=== PATIENT | male | born 1950 | race Caucasian/White ===

== ENCOUNTER → 2017-10-28 15:59 | Outpatient (CLI) | payer MEDICARE, OTHER, SELFPAY ==
[2017-10-28 18:10] LABS: Anion Gap 9 (5-15); BUN 29 mg/dL (7-18); BUN/Creat Ratio 17.4 RATIO (10-20); Calcium,Total 9.3 mg/dL (8.5-10.1); Chloride 102 mmol/L (98-107); Creatinine, Serum 1.67 mg/dL (0.70-1.30); EST Glomerular Filtration Rate 44 mL/min (>60); Est Glom Filt Rate - Afr Amer 53 mL/min (>60); Glucose 98 mg/dL (70-110); Potassium 4.2 mmol/L (3.5-5.1); Sodium Level 139 mmol/L (136-145); T4 Free Direct 1.61 ng/dL (0.76-1.46); Thyroid Stim Hormone (TSH) 1.64 uIU/mL (0.358-3.74)
== END ==
PROVIDERS: Family Provider Family Medicine; PCP Family Medicine; Visit Provider Family Medicine
DX: E03.9 Hypothyroidism, unspecified (principal)
CPT/HCPCS: 80048; 84439; 84443

== ENCOUNTER → 2017-11-25 13:42 | Outpatient (CLI) | payer MEDICARE, OTHER, SELFPAY ==
[2017-10-31 15:40] VITALS: BP 110/60; BMI 32.7
--- NOTE | 2017-11-25 13:44 | ECHOCS_ITS ---
Reason For Study: CAD/ASHD Procedure This was a 2D Doppler, Color Flow transthoracic echocardiogram. The study was technically difficult. Contrast injection was performed. Exam performed in department. Left Ventricle Severely dilated left ventricle. The estimated ejection fraction is 25 %. Transmitral diastolic flow velocities suggest severe (stage 3) diastolic dysfunction. There is severe global hypokinesis of the left ventricle. Right Ventricle Normal RV size. ICD or pacer leads identified within the right ventricle. Normal systolic function. Atria The left atrium is mildly enlarged. Normal right atrium. Mitral Valve Normal mitral valve. Mild-Moderate (1-2+) eccentric mitral valve insufficiency. Tricuspid Valve Normal tricuspid valve. Mild to moderate (1-2+) tricuspid valve insufficiency. Pulmonary artery systolic pressure is 42 mmHg. Aortic Valve Normal aortic valve. Mild (1+) aortic valve insufficiency. Pulmonic Valve Normal pulmonic valve. Great Vessels Normal aortic root. The pulmonary is not well visualized. Normal inferior vena cava. Pericardium/Pleural No pericardial effusion. Medication 22 gauge I.V. with prn adaptor inserted into right arm. Diluted definity 3.0ml given slow IV push to enhance endocardial definition. MMode/2D Measurements & Calculations LVIDd: 7.0 cm IVSd: 1.2 cm Ao root diam: 3.0 cm LVIDs: 6.0 cm LVPWd: 1.1 cm LA dimension: 4.9 cm FS: 14.7 % LAV(MOD-bp): 83.4 ml LAV(MOD-bp) Indexed: 37.8 ml/m2 LA A4 area: 27.0 cm2 RA A4 area: 22.5 cm2 LAV(MOD-sp2): 82.1 ml LAV(MOD-sp4): 87.1 ml Doppler Measurements & Calculations MV E max bc: 94.4 cm/sec Lat Peak E' Bc: 5.8 cm/sec Med Peak E' Bc: 4.3 cm/sec MV A max bc: 77.2 cm/sec E/E' lat: 16.4 E/E' med: 21.7 MV E/A: 1.2 Ao V2 max: 135.4 cm/sec LV V1 max: 85.6 cm/sec MR max bc: 484.0 cm/sec Ao max P.3 mmHg LV V1 max P.9 mmHg MR max P.7 mmHg PA V2 max: 73.3 cm/sec TR max bc: 307.0 cm/sec TR max P.7 mmHg Interpretation Summary Severely dilated left ventricle. The estimated ejection fraction is 25 %. Transmitral diastolic flow velocities suggest severe (stage 3) diastolic dysfunction Mild to moderate (1-2+) tricuspid valve insufficiency. Pulmonary artery systolic pressure is 42 mmHg. Compared to prior study, there is no significant change. Ordering Physician: Jatin Maldonado Referring Physician: Jatin Maldonado Performed By: Yuridia Gilliland, ABDOUL, RVT
== END ==
PROVIDERS: Family Provider Family Medicine; PCP Family Medicine; Visit Provider Internal Medicine Cardiovascular Disease
DX: I25.10 Atherosclerotic heart disease of native coronary artery without angina pectoris (principal)
CPT/HCPCS: 93306; Q9957; A4216; C8929

== ENCOUNTER 2017-12-30 01:39 | Emergency (ER) | payer MEDICARE, OTHER, SELFPAY ==
[2017-12-30 01:40] VITALS: BP 152/80; PULSE 60; RESP 16; TEMP 36.7; O2SAT 94; BMI 33.2
--- NOTE | 2017-12-30 02:04 | EKG12_ITS ---
Test Reason : GEN ILLNESS Blood Pressure : / mmHG Vent. Rate : 060 BPM Atrial Rate : 060 BPM P-R Int : 218 ms QRS Dur : 164 ms QT Int : 516 ms P-R-T Axes : 019 -36 -09 degrees QTc Int : 516 ms Atrial-paced rhythm with prolonged AV conduction Left axis deviation Left bundle branch block Abnormal ECG Confirmed by DEBRA TIWRAI, TAHIR ([id number]), science editor CELINE MCCORD ([id number]) on 12/31/2017 1:26:19 PM Referred By: PETER Confirmed By:TAHIR RICHARDSON MD
--- NOTE | 2017-12-30 02:04 | RAD_ITS ---
STUDY: X-RAY CHEST REASON FOR EXAM: Male, 67 years old. Problems sleeping for the last 2 nights. TECHNIQUE: Frontal and lateral views of the chest. COMPARISON: 01/02/2016. FINDINGS: There is hyperinflation of the lungs consistent with chronic obstructive lung disease (COPD). There is no demonstrated pulmonary infiltrate. There is no demonstrated pleural abnormality. Normal size heart. There is an atrioventricular pacemaker. Normal mediastinum and [place]. Normal visualized pulmonary arteries. Normal visualized aortic arch and descending x-ray thoracic aorta. Normal visualized thoracic spine. Normal visualized ribs, clavicles, and shoulders. There is no demonstrated abnormality of the visualized soft tissue structures of the upper abdomen. RAD/Chest PA and Lateral IMPRESSION: Suggestion of COPD. Pacemaker. No evidence for acute cardiopulmonary pathology. Electronically Signed: Enrrique Sndier MD at 3:48 EDT , Service support ,
--- NOTE | 2017-12-30 02:31 | ED.VISSUMM ---
- ER Visit Summary Date of Service: 12/30/17 Chief Complaint: [] Requesting cardiac assessment, shortness of breath History of Present Illness: The patient is a 67 M [] requesting a cardiac assessment for mild shortness of breath and being unable to get comfortable during the evening. Patient reports anxiety for a cardiac events as he has a cardiac stents and a pacemaker. He denies chest pain at any point. Reports very mild shortness of breath. Appears slightly anxious during the history and physical examination. No other complaints at this time. Physical Examination: [] Afebrile, vital signs stable. She 7-year-old male in no acute distress. Cardiovascular exam is regular rate and rhythm. Lungs are clear to auscultation. Abdomen is obese, soft, nontender. No significant lower extremity edema. Test Results: [] EKG: Atrial paced rhythm rate of 60 unchanged from previous EKG. Chest x-ray: Negative per my interpretation. Labs: CBC, BMP, troponin, BNP within normal limits. Emergency Department Course and Treatment: [] Patient had a very benign presentation and physical examination. He appears slightly anxious and again denies chest pain anytime prior or during his ED visit. 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 Treatment Plan: [] Follow-up with cardiology. Disposition: [] Discharge, stable. Impression: [] Anxiety Dyspnea History of CAD This note was generated with [employer] dictation software. It may contain incorrect words, spelling, and punctuation that were not noted in review of the chart prior to signing ED Disposition - Plan for ED Patient: Chief Complaint: General Illness Referrals: Edgardo Garcia MD [Primary Care Provider] -
[2017-12-30 02:35] LABS: Absolute Lymphocyte Count 1.21 X10^3/ul (0.83-4.51); Basophil# 0.08 X10^3/uL; Basophil% 0.7 % (0-1); Eosinophil# 0.25 X10^3/uL; Eosinophils% 2.2 % (0-5); Hematocrit 46.7 % (40-54); Hemoglobin 15.8 g/dl (13.0-16.5); Lymphocyte # 1.21 X10^3/ul (4.0); Lymphocyte % 10.7 % (19-41); Mean Corp Hgb Conc 33.8 g/gl (32-36); Mean Corpuscular Hgb 30.7 pg (27.0-32.0); Mean Corpuscular Volume 90.7 fL (80-94); Mean Platelet Vol. 9.9 fl (6.2-12.0); Monocyte# 0.72 X10^3/uL; Monocyte% 6.4 % (0-10); Neutrophil # 9.02 X10^3/uL (2.7-7.7); Neutrophil % 79.7 % (47-70); Platelet Count 254 K/mm3 (150-450); RBC Distribution Width CV 13.6 % (11.6-14.6); Red Blood Count 5.15 M/mm3 (4.6-6.2); White Blood Count 11.3 K/mm3 (4.4-11.0)
[2017-12-30 02:36] LABS: POSITIVE COUNT NO; POSITIVE DIFFERENTIAL NO; POSITIVE MORPHOLOGY NO
[2017-12-30 02:51] LABS: Anion Gap 8 (5-15); BUN 22 mg/dL (7-18); BUN/Creat Ratio 16.7 RATIO (10-20); Calcium,Total 8.9 mg/dL (8.5-10.1); Chloride 106 mmol/L (98-107); Creatinine, Serum 1.32 mg/dL (0.70-1.30); EST Glomerular Filtration Rate 57 mL/min (>60); Est Glom Filt Rate - Afr Amer 70 mL/min (>60); Estimated Creatinine Clearance 56.07 ml/min; Glucose 146 mg/dL (74-106); Potassium 4.3 mmol/L (3.5-5.1); Sodium Level 141 mmol/L (136-145)
[2017-12-30 03:11] LABS: BNP,B-Type NATRIURETIC PEPTIDE 294.2 pg/mL (0-100)
--- NOTE | 2017-12-30 03:16 | ED.DEP ---
ED Disposition - Plan for ED Patient: Disposition: Home or Assisted Living Chief Complaint: General Illness Instructions: ED Dyspnea Shortness of Breath Referrals: Edgardo Garcia MD [Primary Care Provider] -
[2017-12-30 03:47] VITALS: BP 149/82; PULSE 60; RESP 20; O2SAT 95
== END 2017-12-30 03:48 | disposition home or self-care (01) ==
PROVIDERS: Emergency Provider Emergency Medicine; Family Provider Family Medicine; PCP Family Medicine
DX: F41.9 Anxiety disorder, unspecified (principal); R06.00 Dyspnea, unspecified; I25.10 Atherosclerotic heart disease of native coronary artery without angina pectoris; E66.9 Obesity, unspecified; Z95.0 Presence of cardiac pacemaker; Z95.5 Presence of coronary angioplasty implant and graft
CPT/HCPCS: 71046; 80048; 83880; 84484; 85025; 93005; 99284; A4216

== ENCOUNTER → 2018-04-21 15:56 | Outpatient (CLI) | payer MEDICARE, OTHER, SELFPAY ==
[2018-04-21 18:01] LABS: ALB/GLOB Ratio 0.9 RATIO (0.9-2.4); AST(SGOT) 34 U/L (15-37); Alanine Aminotransfer ALT/SGPT 44 U/L (16-61); Albumin, Serum 3.7 g/dL (3.2-5.0); Alkaline Phosphatase 59 U/L (45-117); Anion Gap 6 (5-15); BUN 21 mg/dL (7-18); Calcium,Total 8.7 mg/dL (8.5-10.1); Chloride 108 mmol/L (98-107); Creatinine, Serum 1.61 mg/dL (0.70-1.30); EST Glomerular Filtration Rate 46 mL/min (>60); Est Glom Filt Rate - Afr Amer 55 mL/min (>60); Glucose 94 mg/dL (74-106); Potassium 4.1 mmol/L (3.5-5.1); Protein, Total 7.7 g/dL (6.4-8.2); Sodium Level 143 mmol/L (136-145); Thyroid Stim Hormone (TSH) 2.31 uIU/mL (0.358-3.74)
== END ==
PROVIDERS: Family Provider Family Medicine; PCP Family Medicine; Visit Provider Family Medicine
DX: I10 Essential (primary) hypertension (principal); E03.9 Hypothyroidism, unspecified; E78.5 Hyperlipidemia, unspecified
CPT/HCPCS: 36415; 80053; 83880; 84443

== ENCOUNTER → 2018-05-06 06:00 | Outpatient (CLI) | payer MEDICARE, OTHER, SELFPAY ==
[2018-05-06 08:18] LABS: AST(SGOT) 32 U/L (15-37); Alanine Aminotransfer ALT/SGPT 47 U/L (16-61); Albumin, Serum 3.6 g/dL (3.2-5.0); Alkaline Phosphatase 63 U/L (45-117); Bilirubin, Direct 0.14 mg/dL (0.00-0.30); Cholesterol 148 mg/dL (200); Globulin 4.1 g/dL (2.2-4.2); High Density Lipoprotein 64 mg/dL; Protein, Total 7.7 g/dL (6.4-8.2); Triglycerides 75 mg/dL; Very Low Density Lipoprotein 15 mg/dL (5-40)
== END ==
PROVIDERS: Family Provider Family Medicine; PCP Family Medicine; Visit Provider Internal Medicine Cardiovascular Disease
DX: E78.5 Hyperlipidemia, unspecified (principal)
CPT/HCPCS: 36415; 80061; 80076

== ENCOUNTER → 2018-10-29 15:52 | Outpatient (CLI) | payer MEDICARE, OTHER, SELFPAY ==
[2018-08-23 12:59] VITALS: BMI 32.7
[2018-10-29 17:41] LABS: Anion Gap 11 (5-15); BUN 28 mg/dL (7-18); BUN/Creat Ratio 18.9 RATIO (10-20); Calcium,Total 8.9 mg/dL (8.5-10.1); Chloride 112 mmol/L (98-107); Creatinine, Serum 1.48 mg/dL (0.70-1.30); EST Glomerular Filtration Rate 50 mL/min (>60); Est Glom Filt Rate - Afr Amer 61 mL/min (>60); Glucose 116 mg/dL (74-106); Sodium Level 146 mmol/L (136-145)
== END ==
PROVIDERS: Family Provider Family Medicine; PCP Family Medicine; Visit Provider Family Medicine
DX: I10 Essential (primary) hypertension (principal)
CPT/HCPCS: 36415; 80048

== ENCOUNTER → 2018-11-04 15:38 | Outpatient (CLI) | payer MEDICARE, OTHER, SELFPAY ==
[2018-11-04 14:50] VITALS: BMI 32.4
[2018-11-04 17:04] LABS: T4 Free Direct 1.66 ng/dL (0.76-1.46); Thyroid Stim Hormone (TSH) 0.13 uIU/mL (0.358-3.74)
== END ==
PROVIDERS: Family Provider Family Medicine; PCP Family Medicine; Referring Provider Nurse Practitioner Family; Visit Provider Nurse Practitioner Family
DX: E78.5 Hyperlipidemia, unspecified (principal); Z79.899 Other long term (current) drug therapy
CPT/HCPCS: 36415; 84439; 84443

== ENCOUNTER → 2018-11-12 07:07 | Outpatient (CLI) | payer MEDICARE, OTHER, SELFPAY ==
[2018-11-04 14:50] VITALS: BMI 32.4
[2018-11-12 08:46] LABS: AST(SGOT) 30 U/L (15-37); Alanine Aminotransfer ALT/SGPT 46 U/L (16-61); Albumin, Serum 3.6 g/dL (3.2-5.0); Alkaline Phosphatase 73 U/L (45-117); Bilirubin, Direct 0.17 mg/dL (0.00-0.30); Cholesterol 138 mg/dL (200); Globulin 4.2 g/dL (2.2-4.2); High Density Lipoprotein 62 mg/dL; Protein, Total 7.8 g/dL (6.4-8.2); Triglycerides 74 mg/dL; Very Low Density Lipoprotein 15 mg/dL (5-40)
== END ==
PROVIDERS: Family Provider Family Medicine; PCP Family Medicine; Referring Provider Physician Assistant Medical; Visit Provider Physician Assistant Medical
DX: E87.5 Hyperkalemia (principal); I25.10 Atherosclerotic heart disease of native coronary artery without angina pectoris
CPT/HCPCS: 36415; 80061; 80076

== ENCOUNTER → 2019-01-05 | Outpatient (CLI) | payer MEDICARE, OTHER, SELFPAY ==
[2018-11-04 14:50] VITALS: BMI 32.4
[2019-01-05 16:31] LABS: T4 Free Direct 1.28 ng/dL (0.76-1.46); Thyroid Stim Hormone (TSH) 5.01 uIU/mL (0.358-3.74)
== END | disposition home or self-care (01) ==
LOC: MFPLAB 14:41
PROVIDERS: Family Provider Family Medicine; PCP Family Medicine; Visit Provider Family Medicine
DX: E03.9 Hypothyroidism, unspecified (principal)
CPT/HCPCS: 36415; 84439; 84443

== ENCOUNTER 2019-03-25 09:51 | Inpatient (IN) | payer MEDICARE, OTHER, SELFPAY ==
[2018-11-04 14:50] VITALS: BMI 32.4
[2019-03-25] VITALS (11 sets, daily range): BP systolic 104–127; BP diastolic 58–65; PULSE 60–63; RESP 16–61; TEMP 36.6–36.8; O2SAT 88–96; BMI 30.7; BMI 30.3
--- NOTE | 2019-03-25 10:27 | EKG12_ITS ---
Test Reason : LACERATION Blood Pressure : / mmHG Vent. Rate : 060 BPM Atrial Rate : 060 BPM P-R Int : 214 ms QRS Dur : 162 ms QT Int : 612 ms P-R-T Axes : 013 -40 077 degrees QTc Int : 612 ms Atrial-paced rhythm with prolonged AV conduction Left axis deviation Left bundle branch block Abnormal ECG Confirmed by MELISSA TIWARI, VINOD ([id number]), design editor DENISE FOURNIER ([id number]) on 03/27/2019 10:36:10 AM Referred By: Vlad Jarvis Confirmed By:NATALIA TORRES MD
--- NOTE | 2019-03-25 10:31 | CT_ITS ---
HISTORY: Status post fall with headache COMPARISON: None. TECHNIQUE: Helical CT axial images are obtained from the base of skull through the vertex without IV contrast. Multiplanar reconstruction. A radiation dose optimization technique was used for this scan. # of images incl. paperwork: 257 FINDINGS: Moderate sized focal area of decreased attenuation anterior left periventricular white matter/sykes radiata region most likely sequela of prior ischemic insult. No parenchymal hemorrhage, acute infarct, intra-axial mass, mass effect, or midline shift. No abnormal extra-axial fluid collections. Ventricles are normal in size and configuration. No hydrocephalus. Within the left suboccipital subcutaneous soft tissues is a partially seen lobulated soft tissue density mass measuring 2.0 x 2.3 cm in greatest TV/AP dimensions.Bone windows show no skull fracture or calvarial lesions. Visualized paranasal sinuses are clear. Visualized mastoid air cells are clear. ASPECTS Score for Acute Strokes: 10 CT/Brain/Head without Contrast IMPRESSION: 1. No acute intracranial disease. 2. Moderate size focal area of probable old infarct left anterior periventricular white matter/sykes radiata region. Somewhat unusual to have such an isolated appearance, and therefore further evaluation with MRI brain is warranted. 3. Partially seen left suboccipital soft tissue soft tissue density lobulated mass measuring at least 2.0 x 2.3 cm. Individualized dose optimization techniques were used for this CT. at 1210 Reported and signed by: Gal Magdaleno MD Electronically Signed: Gal Magdaleno MD at 12:10 EDT Tel , Service support ,
--- NOTE | 2019-03-25 10:35 | RAD_ITS ---
STUDY: X-RAY CHEST REASON FOR EXAM: Male, 68 years old. TECHNIQUE: 1 view COMPARISON: December 30, 2017. FINDINGS: The heart is moderately enlarged. A permanent pacemaker is noted with 2 leads in position. There is haziness involving both central lung larsen more so on the left side. Heavy markings seen in the medial aspect of the right base. No obvious consolidation or atelectasis. No pleural effusion or pneumothorax noted. The trachea is in the midline. The visualized bony structures are intact. RAD/Chest 1 View (Portable) IMPRESSION: Haziness involving both central lung larsen more on the left Moderate Cardiomegaly. Electronically Signed: Warren Huber, at 11:51 EDT Tel , Service support ,
[2019-03-25 11:01] LABS: Absolute Lymphocyte Count 0.42 X10^3/ul (0.83-4.51); Absolute Neutrophil Count 13.5 X10^3/uL (2.0-7.7); Basophil# 0.04 X10^3/uL; Basophil% 0.3 % (0-1); Hematocrit 38.6 % (40-54); Hemoglobin 12.7 g/dl (13.0-16.5); Lymphocyte # 0.42 X10^3/ul (4.0); Lymphocyte % 2.8 % (19-41); Mean Corp Hgb Conc 32.9 g/gl (32-36); Mean Corpuscular Hgb 29.9 pg (27.0-32.0); Mean Corpuscular Volume 90.8 fL (80-94); Mean Platelet Vol. 9.5 fl (6.2-12.0); Monocyte# 0.93 X10^3/uL; Monocyte% 6.3 % (0-10); Neutrophil # 13.47 X10^3/uL (2.7-7.7); Neutrophil % 90.5 % (47-70); Platelet Count 223 K/mm3 (150-450); RBC Distribution Width CV 14.7 % (11.6-14.6); RBC Distribution Width SD 47.8 fl (35.1-43.9); Red Blood Count 4.25 M/mm3 (4.6-6.2); White Blood Count 14.9 K/mm3 (4.4-11.0)
[2019-03-25 11:04] LABS: Differential Indicated SCAN CRITERIA MET; POSITIVE COUNT NO; POSITIVE DIFFERENTIAL YES; POSITIVE MORPHOLOGY NO
--- NOTE | 2019-03-25 11:09 | ED.DCSUM_ITS ---
History of Present Illness Chief Complaint: Laceration Informant: Patient Occurred: Today Mechanism/Context: Cannot recall fall - But was in bed prior to the fall, awoke on the floor next to the bed, Lightheadedness Location: right lip/mouth Quality of Pain: - - sore Current Severity: Mild Maximum Severity: Mild Worsened by: palpation Relieved by: leaving it alone Associated Symptoms: - - mouth bleeding. Negative for: Parasthesias, Weakness Narrative: Patient states he had some vomiting and diarrhea recently without any abdominal discomfort, was feeling lightheaded this morning, but laid down to take a nap after he was up earlier, does not know if he was asleep and fell out of bed or if something else happened, but he does not recall any of the events and woke up on the floor. No tongue biting or soiling his pants. Denies a headache. states there is a small bedside table that appeared that he had hit it, and may have caused a laceration at the corner of his mouth on the right. He states he is sore there but does not feel like he injured anything else. He is on aspirin and Plavix for a history of coronary stenting. States last night he felt short of breath for period of time and was coughing, nonproductive, denies that now. No known history of lung disease. - Past Medical History (1) Atherosclerotic heart disease of [place] coronary artery without angina pectoris Status: Chronic (2) Cardiomyopathy, ischemic Status: Chronic (3) History of radiofrequency ablation procedure for cardiac arrhythmia Status: Chronic Comment: VT ablation 03/04/[address] Livingston @ [place] (4) Hyperlipidemia Status: Chronic (5) Hypertension Status: Chronic (6) ICD (implantable cardioverter-defibrillator) in place Status: Chronic Comment: initial implant 09/02/2006 @ [facility] per Dr. Florez ; gen change 06/05/2012 @ [facility] per Dr. Ely (7) Nonrheumatic mitral (valve) insufficiency Status: Chronic (8) PAF (paroxysmal atrial fibrillation) Status: Chronic (9) Ventricular tachycardia Status: Resolved Past Medical History - Allergies and Home Meds Allergies/Adverse Reactions: Allergies Penicillins Allergy (Verified 11/04/18 14:58) Unknown was told had a reaction as a child Surgical History: angioplasty, - - AICD placement in 2011, ablation procedure for ventricular tachycardia February 2014. Lives: Spouse/ Significant Other Smoking Status: Never smoker Drugs: None - Family History Maternal Family History: Family History (Last Reviewed 03/25/19 @ 13:43 by Vlad Jarvis DO) Mother Sudden cardiac Father No problems noted. Family History: Reports: - - from sudden cardiac arrest. Paternal Family History: Family History (Last Reviewed 03/25/19 @ 13:43 by Vlad Jarvis DO) Mother Sudden cardiac Father No problems noted. Family History: Reports: - - sudden Review of Systems All systems negative except as indicated General: Denies: Chills, Fever, Sweats Eyes: Denies: Visual changes - bilaterally, Diplopia ENT: Reports: - - right mouth/lip pain and lac. Denies: Rhinorrhea, Sore throat Cardiovascular: Denies: Chest pain, Palpitations Respiratory: Reports: Dyspnea, Cough. Denies: Dyspnea on exertion Gastrointestinal: Denies: Abdominal pain, Nausea, Vomiting, Diarrhea, Melena, Hematochezia Genitourinary: Denies: Dysuria, Hematuria, Frequency Musculoskeletal: Denies: Neck pain, Back pain, Swelling, Extremity Pain Skin: Reports: Wounds. Denies: Rash Neurological: Denies: Headache, Weakness, Numbness Hematologic: Reports: Easy bruising, Easy bleeding Physical Exam Vital Signs/Narrative: Vital Signs Temp Resp BP Pulse Ox 03/25/19 09:52 98.3 F 60 H 114/61 88 Inital Vital Signs reviewed: Yes General: Well nourished, Well developed Head: Normocephalic, Atraumatic - except for right lip Eyes: Perrl, EOMI ENT: TM's clear, No hemotympanum or drainage, - - Midface stable and nontender. There is a 1 cm laceration of the upper lip on the right, just above the corner of the mouth. He has some crooked teeth that may have caused this, but none of them are loosened or tender, there is no gingival trauma, there is a missing tooth nearby in the maxillary row but there is no tenderness or evidence that this occurred acutely. There is no other evidence of intraoral trauma. The laceration has intermittent arteriolar bleeding that is able to be controlled after holding pressure for about 60 seconds and keeping the patient from moving his lips. There is another laceration below his lower lip not including the vermilion that is separate, and not through and through.. Negative for: Nasal trauma, Nasal septal hematoma Neck: Nontender, Full ROM. Negative for: Spinal Tenderness Cardiovascular: Regular rate, Regular rhythm, No murmurs Respiratory: No distress, CTA bilaterally, Chest nontender Abdomen: Soft, Nontender, Nondistended, Normal bowel sounds Back: Nontender. Negative for: Spinal Tenderness Skin: Normal color, No rash, Trauma - Right lip laceration as above, 1 cm, full- thickness within the vermilion and mucosa, not crossing the border vermilion. 1 cm full thickness clean irregular facial laceration just below lower lip on right. Neurological: Alert, Oriented x3, Cranial nerves II-XII grossly intact, Normal Strength, Normal Sensation, - - GCS 15 Psychological: Normal affect Diagnostic/Tx/Re-eval Impressions Brain CT 03/25/19 10:31 IMPRESSION: 1. No acute intracranial disease. 2. Moderate size focal area of probable old infarct left anterior periventricular white matter/sykes radiata region. Somewhat unusual to have such an isolated appearance, and therefore further evaluation with MRI brain is warranted. 3. Partially seen left suboccipital soft tissue soft tissue density lobulated mass measuring at least 2.0 x 2.3 cm. Individualized dose optimization techniques were used for this CT. at 1210 Reported and signed by: Gal Magdaleno MD Electronically Signed: Gal Magdaleno MD at 12:10 EDT Tel , Service support , Chest X-Ray 03/25/19 10:35 IMPRESSION: Haziness involving both central lung larsen more on the left Moderate Cardiomegaly. Electronically Signed: Warren Huber, at 11:51 EDT Tel , Service support , 03/25/19 10:31 Brain/Head without Contrast [CT] Stat 03/25/19 10:35 Chest 1 View (Portable) [RAD] Stat Laboratory Results 03/25/19 03/25/19 10:47 10:47 WBC 14.9 H RBC 4.25 L Hgb 12.7 L Hct 38.6 L MCV 90.8 MCH 29.9 MCHC 32.9 RDW 14.7 H RDW Differential 47.8 H Plt Count 223 MPV 9.5 Immature Gran % (Auto) 0.100 Neut % (Auto) 90.5 H Lymph % (Auto) 2.8 L [place] % (Auto) 6.3 Eos % (Auto) 0.0 Baso % (Auto) 0.3 Absolute Neuts (auto) 13.5 H Absolute Lymphs (auto) 0.42 L Total Counted Not Reportable Differential Comment COMMENT Sodium 141 Potassium 4.5 Chloride 110 H Carbon Dioxide 25.0 Anion Gap 6 BUN 34 H Creatinine 1.54 H Estim Creat Clear Calc 47.40 Est GFR (MDRD) Af Amer 58 L Est GFR (MDRD) Non-Af 48 L BUN/Creatinine Ratio 22.1 H Glucose 172 H Calcium 8.3 L Troponin I 0.069 H - Rhythm Strip Rhythm Strip: atrial pace/capture Rate: 60 Ectopy: None - EKG Initial EKG Interpretation: No Acute Injury Pattern, Paced - atrial, LBBB Prior: Unchanged - Medical Decision Making CT shows a soft tissue mass in the occipital area but also a moderately sized area of infarct as noted above in the CT result. In discussing this with the patient he is surprised and states he has never had a stroke before that he knows of. He does have a history of paroxysmal atrial fibrillation in his history, and he is on aspirin and Plavix without anticoagulation. He has no history of life-threatening bleeding that he knows of. I discussed with neurology Dr. Buitrago who advises anticoagulating him in addition to admitting him, MRI, etc. Also EEG. MRI may not be able to be obtained because of his pacemaker/defibrillator. Other than chronic renal insufficiency and a nonspecifically elevated troponin which he has had in the past, the rest of his work-up is unremarkable. Discussed with hospitalist for admission to telemetry/PCU. Of note, NIHSS is 0. Given this and lack of neurologic deficits, no IV TPA is indicated. Procedures - Lacerations upper right lip Length: 1 cm Depth: Sub Q Shape: L-shaped Prep: Sterile Conditions, Chlorhexadine Laceration Repair: Lidocaine - 4.5 cc locally total. Irrigated with saline. Number of Sutures/[place]: 7 - Total Suture Information: Simple, 5-0 - Vicryl x4 on lip mucosa/vermilion, 6-0 - Nylon x3 at facial skin laceration ED Disposition - Plan for ED Patient: Disposition: Acute Care Hospital [facility] Diagnosis: Syncope, Ischemic stroke without residual deficits, Paroxysmal atrial fibrillation, Lip laceration, Facial laceration
[2019-03-25 11:10] LABS: Anion Gap 6 (5-15); BUN 34 mg/dL (7-18); BUN/Creat Ratio 22.1 RATIO (10-20); Calcium,Total 8.3 mg/dL (8.5-10.1); Chloride 110 mmol/L (98-107); Creatinine, Serum 1.54 mg/dL (0.70-1.30); EST Glomerular Filtration Rate 48 mL/min (>60); Est Glom Filt Rate - Afr Amer 58 mL/min (>60); Glucose 172 mg/dL (74-106); Potassium 4.5 mmol/L (3.5-5.1); Sodium Level 141 mmol/L (136-145)
[2019-03-25] MEDS: Lidocaine/Epi/Tetracaine 50 ML 1 APPLIC TOPICAL (11:45)
--- NOTE | 2019-03-25 13:04 | NURSING ---
DR SEVILLA FOR DR MANZO
--- NOTE | 2019-03-25 13:39 | PCM.HP.STD ---
Problem List (1) Syncope Status: Acute Qualifiers: Syncope type: unspecified Qualified Code(s): R55 - Syncope and collapse (2) CVA (cerebral vascular accident) Status: Acute Qualifiers: CVA mechanism: unspecified Qualified Code(s): I63.9 - Cerebral infarction, unspecified History of Present Illness Date of Admission: 03/25/19 Chief Complaint: fell down. The patient is a 68 year old M who was in his normal state of health up until the past day where he is having some diarrhea. Was also just not eating or drinking. Got up this morning felt dizzy went to lay back down in the next thing he knew he was awake on the floor had no recollection of how he got there. Patient sustained a laceration of his lip as well as some bruising on his face and on his left knuckles. Patient is never had any event such as this in the past. Presented to the emergency room and had an MRI that showed a moderate size focal area of probable old infarct of the left anterior periventricular white matter/sykes radiata region. Neurology was contacted and advised anticoagulation and an MRI. Unfortunately, patient has a defibrillator [employer] E110 that is not described as being MRI compatible in the company information sheets. Patient is never had a stroke before and denies any unilateral weakness, expressive nor receptive aphasia. [] Past Medical History Past Medical History (Chronic Problems): Chronic Problems (Last Reviewed 03/25/19 @ 13:42 by Vlad Jarvis DO) halfway current use of amiodarone (Chronic) ICD (implantable cardioverter-defibrillator) in place (Chronic) History of acute congestive heart failure (Chronic) halfway current use of anticoagulant (Chronic) History of left heart catheterization (Chronic) @ [facility], 03/02/2014 and 11/01/2015, Dr. Maldonado at [facility] Stented coronary artery (Chronic) 05/16/2006 mid to distal AV cx facilitated by [facility] Aspiration cath using [employer] KEIKO Nonrheumatic mitral (valve) insufficiency (Chronic) Atherosclerotic heart disease of [place] coronary artery without angina pectoris (Chronic) History of radiofrequency ablation procedure for cardiac arrhythmia (Chronic) VT ablation 03/04/[address] Livingston @ [facility] Hyperlipidemia (Chronic) Hypertension (Chronic) ICD (implantable cardioverter-defibrillator) in place (Chronic) initial implant 09/02/2006 @ [facility] per Dr. Florez ; gen change 06/05/2012 @ [facility] per Dr. Ely PAF (paroxysmal atrial fibrillation) (Chronic) Cardiomyopathy, ischemic (Chronic) Medical History: Medical History (Last Reviewed 03/25/19 @ 13:42 by Vlad Jarvis DO) History of acute congestive heart failure (Chronic) Z86.79 halfway current use of anticoagulant (Chronic) Z79.01 Nonrheumatic mitral (valve) insufficiency (Chronic) I34.0 Atherosclerotic heart disease of [place] coronary artery without angina pectoris (Chronic) I25.10 Hyperlipidemia (Chronic) E78.5 Hypertension (Chronic) I10 Ventricular tachycardia (Resolved) I47.2 PAF (paroxysmal atrial fibrillation) (Chronic) I48.0 Cardiomyopathy, ischemic (Chronic) I25.5 Allergies Penicillins Allergy (Verified 11/04/18 14:58) Unknown was told had a reaction as a child Home Medications: Ambulatory Orders Medication Instructions Recorded Multivit-Min/FA/Lycopene/Lut 1 tab PO DAILY 03/01/14 [Centrum Silver Tablet] Aspirin [Aspirin, Baby] 81 mg PO DAILY@0800 10/31/15 levothyroxine 50 mcg capsule 50 mcg PO QDAY cap 10/31/17 amlodipine 2.5 mg tablet 2.5 mg PO QDAY #90 tab 05/01/18 atorvastatin 20 mg tablet 20 mg PO QHS #90 tab 07/24/18 amiodarone 200 mg tablet 200 mg PO DAILY #90 tab 10/07/18 clopidogrel 75 mg tablet 75 mg PO DAILY #90 tab 10/07/18 ipratropium bromide 42 mcg (0.06 2 spray INTRANASAL TID PRN 11/04/18 %) nasal spray carvedilol 25 mg tablet 25 mg PO BID #180 tab 02/13/19 furosemide 20 mg tablet 20 mg PO QDAY #90 tab 02/13/19 Surgical History: Surgical History (Last Reviewed 03/25/19 @ 13:42 by Vlad Jarvis DO) History of left heart catheterization (Chronic) Z98.890 05/16/056 @ [facility], 03/02/2014 and 11/01/2015, Dr. Maldonado at [facility] Stented coronary artery (Chronic) Z95.5 05/16/2006 mid to distal AV cx facilitated by [employer] Aspiration cath using [employer] KEIKO History of radiofrequency ablation procedure for cardiac arrhythmia (Chronic) Z98.890 VT ablation 03/04/[address] Livingston @ [facility] ICD (implantable cardioverter-defibrillator) in place (Chronic) Z95.810 initial implant 09/02/2006 @ [facility] per Dr. Florez ; gen change 06/05/2012 @ [facility] per Dr. Ely Surgical History: angioplasty, - - AICD placement in 2011, ablation procedure for ventricular tachycardia February 2014. Psychiatric History: No pertinent psych hx Lives: Spouse/ Significant Other Smoking Status: Never smoker Drugs: None - *Family History Maternal Family History: Family History (Last Reviewed 03/25/19 @ 13:43 by Vlad Jarvis DO) Mother Sudden cardiac Father No problems noted. History Items: - - from sudden cardiac arrest. Paternal Family History: Family History (Last Reviewed 03/25/19 @ 13:43 by Vlad Jarvis DO) Mother Sudden cardiac Father No problems noted. History Items: - - sudden Review of Systems Constitutional: Denies: Chills, Fever, Weight Change Eyes: Reports: Blurred vision - Without glasses. Denies: Double vision HEENT: Denies: Head Aches, Sinus Congestion, Sinus Drainage Cardiovascular: Denies: Chest Pain, Palpitations Respiratory: Denies: Cough, Shortness of breath at rest, Sputum production Gastrointestinal: Denies: Abdominal Pain, Nausea, Vomiting Genitourinary: Denies: Dysuria Musculoskeletal: Denies: Joint Pain, Joint Tenderness Skin: Denies: Dryness, Jaundice Neurological: Reports: Blurred vision - Without glasses, -. Denies: Balance problems, Double vision, Change in Speech, Slurred speech, Focal weakness, Numbness, Tingling Psychiatric: Denies: Anxiety, Depression Hematologic/ Lymphatic: Denies: Easy Bruising, Easy Bleeding Comment: A 10 point review of systems were negative except as mentioned in the history of present illness and the other review of systems. VTE Information - Inpt Only VTE Present on Admission: No VTE Mechan Device Prophylaxis: None VTE Pharm Prophylaxis ordered?: No Reason prophylaxis not ordered:: Procedure Not Indicated Patient Problems: Active and Suspected Problems (Last Reviewed 03/25/19 @ 13:42 by Vlad Jopperi, DO) Syncope (Acute) Ischemic stroke without residual deficits (Acute) Lip laceration (Acute) Syncope (Acute) CVA (cerebral vascular accident) (Acute) - Physical Exam General: Alert, No apparent distress HEENT: PERRLA, EOMI, Normocephalic, - - Laceration on the right lip was not fully evaluated as bandages were on it. Did not remove the bandages. Oral: Moist Mucosa, No Gingival or Mucosal Lesions/ Ulcerations Neck: No Nodes, Thyroid Normal Size and Texture Lungs: Clear to auscultation, Normal air movement, No rhonchi, No wheeze, No rales Cardiovascular: Regular rate, Regular Rhythm, Normal S1, Normal S2, No murmurs Abdomen: Bowel Sounds Present, Soft, Non Tender, Non-Distended, No Hepato-splenomegaly, Passing Flatus Extremities: No edema, No Calf Tenderness Skin: No rashes, No breakdown Neurological: Cranial nerves II-XII grossly intact, Neuro grossly intact, Motor Exam 5/5 strength throughout Psych/Mental Status: Normal Affect, Appropriate Vital Signs Temp Pulse Resp BP Pulse Ox 36.8 C 60 17 106/58 L 94 03/25/19 09:52 03/25/19 11:44 03/25/19 11:44 03/25/19 11:44 03/25/19 11:44 Oxygen Delivery Method Room Air Weight: 97.069 kg Body Mass Index (BMI) 30.7 Laboratory Tests Past 24 Hrs 03/25/19 03/25/19 10:47 10:47 WBC 14.9 H RBC 4.25 L Hgb 12.7 L Hct 38.6 L MCV 90.8 MCH 29.9 MCHC 32.9 RDW 14.7 H RDW Differential 47.8 H Plt Count 223 MPV 9.5 Immature Gran % (Auto) 0.100 Neut % (Auto) 90.5 H Lymph % (Auto) 2.8 L [place] % (Auto) 6.3 Eos % (Auto) 0.0 Baso % (Auto) 0.3 Absolute Neuts (auto) 13.5 H Absolute Lymphs (auto) 0.42 L Total Counted Not Reportable Differential Comment COMMENT Sodium 141 Potassium 4.5 Chloride 110 H Carbon Dioxide 25.0 Anion Gap 6 BUN 34 H Creatinine 1.54 H Estim Creat Clear Calc 47.40 Est GFR (MDRD) Af Amer 58 L Est GFR (MDRD) Non-Af 48 L BUN/Creatinine Ratio 22.1 H Glucose 172 H Calcium 8.3 L Troponin I 0.069 H EKG personally reviewed and showed atrial paced rhythm. CT scan reviewed and shows area of chronic infarct on the left. Slightly enlarged ventricles. Assessment/Plan All Active Problems (Last Reviewed 03/25/19 @ 13:42 by Vlad Jarvis, ) Syncope (Acute) Ischemic stroke without residual deficits (Acute) Lip laceration (Acute) Syncope (Acute) CVA (cerebral vascular accident) (Acute) Ventricular tachycardia (Resolved) Acute systolic (congestive) heart failure (Resolved) 1. Syncope I suspect a vasovagal given the fact the patient was not feeling well was not drinking much the day or 2 prior However, patient has diagnoses of a stroke with though it is likely chronic night do not suspect it led to his syncopal episode. Patient does have a slightly elevated troponin as well but that may be more demand from possible dehydration and syncope We will check an echocardiogram Interrogate pacemaker/defibrillator Orthostatic vital signs 2. Stroke I suspect chronic to subacute given its appearance on CAT scan May be embolic given the patient's history of paroxysmal atrial fibrillation Echocardiogram, physical and Occupational Therapy, bedside swallow evaluation, neurology consultation. Unable to perform an MRI given the patient's defibrillator, which is [employer] E110 Given that this may be embolic, patient will be started on Lovenox 3. Elevated troponins May be more demand Patient had left heart catheterization back in October 2015 which was angiographically normal at that time We will just cycle troponins out and monitor but if troponins to go up significantly, may need to consider consulting cardiology for evaluation. 4. VTE prophylaxis: Low risk as patient is already being anticoagulated and therefore not indicated. 5. Advanced care planning: Discussed with the patient about CPR, ventilation and PEG tube. Patient states that he will want all that if it did become necessary. Therefore, patient is full CODE STATUS. 6. Lip laceration: Being sutured by the emergency room physician. Sutures will need to be removed in 7 to 10 days. Code Visit OBSV E&M: [id number] Initial observation care L3
[2019-03-25] MEDS: Enoxaparin 100 MG/ML Syringe SC (13:58)
--- NOTE | 2019-03-25 14:56 | ECHOCS_ITS ---
Reason For Study: SYNCOPE, CVA Procedure This was a 2D Doppler, Color Flow transthoracic echocardiogram. Exam performed portable in patient room. Left Ventricle Severely dilated left ventricle. The estimated ejection fraction is 20 %. Stage 2 diastolic dysfunction. There is severe global hypokinesis of the left ventricle. Right Ventricle Normal RV size. ICD or pacer leads identified within the right ventricle. Normal systolic function. Atria The left atrium is moderately enlarged. The right atrium is moderately enlarged. Mitral Valve Normal mitral valve. Mild (1+) mitral valve insufficiency. Tricuspid Valve Normal tricuspid valve. Mild tricuspid valve insufficiency. Pulmonary artery systolic pressure is 44 mmHg. Mild pulmonary hypertension. Aortic Valve The aortic valve is not well visualized. Pulmonic Valve Normal pulmonic valve. Great Vessels Normal aortic root. The pulmonary artery is normal size. Normal inferior vena cava. Pericardium/Pleural No pericardial effusion. Medication Performed a rapid injection of agitated mix of 9 cc saline and 1cc air to assess for atrial septal defect. Diluted definity 3.0ml given slow IV push to enhance endocardial definition. MMode/2D Measurements & Calculations LVIDd: 6.5 cm IVSd: 1.1 cm Ao root diam: 3.5 cm LVIDs: 5.8 cm LVPWd: 1.2 cm FS: 9.5 % LAV(MOD-bp): 125.5 ml LA A4 area: 29.4 cm2 LA dimension(2D): 3.5 cm LAV(MOD-bp) Indexed: 58.4 ml/m2 LAV(MOD-sp2): 128.8 ml LAV(MOD-sp4): 117.5 ml RA A4 area: 16.9 cm2 Time Measurements MV dec time: 0.23 sec Doppler Measurements & Calculations MV E max bc: 67.8 cm/sec Lat Peak E' Bc: 4.3 cm/sec Med Peak E' Bc: 3.7 cm/sec MV A max bc: 81.8 cm/sec E/E' lat: 15.6 E/E' med: 18.1 MV E/A: 0.83 Ao V2 max: 127.6 cm/sec LV V1 max: 85.9 cm/sec PA V2 max: 73.9 cm/sec Ao max P.5 mmHg LV V1 max P.0 mmHg TR max bc: 317.9 cm/sec TR max P.4 mmHg Interpretation Summary Severely dilated left ventricle. The estimated ejection fraction is 20 %. Stage 2 diastolic dysfunction. The left atrium is moderately enlarged. Pulmonary artery systolic pressure is 44 mmHg. Mild pulmonary hypertension. Contrast injection was performed. Ordering Physician: Vlad Jarvis Referring Physician: Sadiq Garcia Performed By: Yuridia Gilliland RDCS, RVT
--- NOTE | 2019-03-25 14:58 | CASEMGMT ---
RN CM Assessment Introduced role of RN CM to patient and patient Mariposa Ortiz at bedside.? Patient is alert, oriented and able?to participate in RN CM Assessment. ?Information obtained from both patient and . Care providers, pharmacy, and demographics verified. Presentation: Has had some vomiting and diarrhea, got up this morning and felt dizzy, laid back down and later woke up on the floor not knowing how he got there, with laceration to corner of mouth. H/o Defibrillator by [employer]. CT Brain- Showed Moderate Probable Old Infarct. No h/o stroke before. Neuro was Consulted. Admit Dx: Syncope Re-Admit: No Barriers/Issues: None PCP: Sadiq Garcia Specialists: Cardio- Dr Maldonado Preferred [facility]acy: [facility] Insurance: [facility] A[facility], [facility] Rx Benefit:?Yes LNOK: Mariposa Ortiz LW/HPOA: Yes LW, thinks has a HPOA and would have designated Mariposa Ortiz Living Arrangements:?Lives with in a [place] home, has a ramp, 2 steps through garage. ADL?s: Independent with ambulation and ADL's Transportation: Patient drives, will transport on DC DME: Defibrillator Machine, Denies any other DME HHC: None SNF: None Goal: Home and does not think will have any needs. Denies any questions or concerns at this time. Aware CM remains available for any emerging needs. DC PLAN: Home with no anticipated needs identified at this time. TANYA Rodriguez
[2019-03-25 16:24] LABS: Thyroid Stim Hormone (TSH) 2.55 uIU/mL (0.358-3.74)
--- NOTE | 2019-03-25 17:32 | CON.PCM_ITS ---
Reason for Consult Date of Consultation: 03/25/19 Reason for Consultation: Abnormal cardiac rhythm. Abnormal cardiac enzymes. History of Present Illness: The patient is a 68 year old M with a previous cardiac history of ischemic cardiomyopathy, atrial fibrillation, ventricular tachyarrhythmia who was apparently doing well at home until he started having some diarrhea the night before admission. He went to bed and the next thing he knew was that he was found on the floor having bitten his lip. He was brought to the emergency room and was evaluated and underwent an MRI which was significant for remote stroke. He was also noted to have mildly abnormal cardiac troponin enzymes. He does have an implantable defibrillator and due to the above he underwent defibrillator interrogation. It demonstrated 3 separate ventricular tachyarrhythmia episodes with discharge of his defibrillator. His past medical history is significant for hypertension, hyperlipidemia, coronary artery disease, status post Ju plasty and stenting of the left circumflex artery. He underwent cardiac catheterization in 2013 when he had incessant ventricular tachycardia and underwent to site ventricular tachycardia ablation. In October 2015 he presented with congestive heart failure severe hypertension and underwent a cardiac catheterization which demonstrated angiographically normal left main coronary artery, left anterior descending artery with no high-grade stenosis, left circumflex artery which was previously stented with 30 to 40% eccentric stenosis and a nondominant right coronary artery with no high-grade stenosis. Medical therapy was recommended. He was placed on amiodarone. His ejection fraction at that time was noted to be 25%. During this hospitalization a repeat echocardiogram demonstrated that his ejection fraction was noted to be 20%. [] Past Medical History Allergies/Adverse Reactions: Allergies Penicillins Allergy (Verified 11/04/18 14:58) Unknown was told had a reaction as a child Home Medications: Ambulatory Orders Medication Instructions Recorded Multivit-Min/FA/Lycopene/Lut 1 tab PO DAILY 03/01/14 [Centrum Silver Tablet] Aspirin [Aspirin, Baby] 81 mg PO DAILY@0800 10/31/15 ipratropium bromide 42 mcg (0.06 2 spray INTRANASAL TID PRN 11/04/18 %) nasal spray Amiodarone HCl [Cordarone] 200 mg PO DAILY 03/25/19 Amlodipine Besylate [Norvasc] 2.5 mg PO QDAY 03/25/19 Atorvastatin Calcium [Lipitor] 20 mg PO QHS 03/25/19 Carvedilol 25 mg PO BID 03/25/19 Clopidogrel Bisulfate [Clopidogrel] 75 mg PO DAILY 03/25/19 Furosemide [Lasix] 20 mg PO QDAY 03/25/19 Levothyroxine Sodium 50 mg PO MOTUWETHFRSA 03/25/19 Past Medical History (Chronic Problems): Chronic Problems (Last Reviewed 03/25/19 @ 13:42 by Vlad Jarvis DO) alf current use of amiodarone (Chronic) ICD (implantable cardioverter-defibrillator) in place (Chronic) History of acute congestive heart failure (Chronic) alf current use of anticoagulant (Chronic) History of left heart catheterization (Chronic) @ [facility], 03/02/2014 and 11/01/2015, Dr. Maldonado at [facility] Stented coronary artery (Chronic) 05/16/2006 mid to distal AV cx facilitated by [place] Aspiration cath using [employer] KEIKO Nonrheumatic mitral (valve) insufficiency (Chronic) Atherosclerotic heart disease of [place] coronary artery without angina pectoris (Chronic) History of radiofrequency ablation procedure for cardiac arrhythmia (Chronic) VT ablation 03/04/[address] Livingston @ [facility] Hyperlipidemia (Chronic) Hypertension (Chronic) ICD (implantable cardioverter-defibrillator) in place (Chronic) initial implant 09/02/2006 @ [facility] per Dr. Florez ; gen change 06/05/2012 @ [facility] per Dr. Ely PAF (paroxysmal atrial fibrillation) (Chronic) Cardiomyopathy, ischemic (Chronic) Surgical History: angioplasty, - - AICD placement in 2011, ablation procedure for ventricular tachycardia February 2014. Psychiatric History: No pertinent psych hx - *Family History Maternal Family History: Family History (Last Reviewed 03/25/19 @ 13:43 by Vlad Jarvis DO) Mother Sudden cardiac Father No problems noted. History Items: - - from sudden cardiac arrest. Paternal Family History: Family History (Last Reviewed 03/25/19 @ 13:43 by Vlad Jarvis DO) Mother Sudden cardiac Father No problems noted. History Items: - - sudden Lives: Spouse/ Significant Other Smoking Status: Former smoker Tobacco Use: Cigarettes Drugs: None Review of Systems - Review of Systems General: Denies: Fever, Night Sweats, Fatigue HEENT: Denies: Vision Change Cardiovascular: Reports: Syncope. Denies: Chest Discomfort, Shortness of Breath, Orthopnea, PND, Peripheral Edema, Palpitations, Lightheadedness, Dizziness, Near Syncope Respiratory: Denies: Cough, Sputum Production, Hemoptysis Gastrointestinal: Reports: Diarrhea. Denies: Hematemesis, Hematochezia, Melena Genitourinary: Denies: Dysuria, Hematuria Muscoloskeletal: Denies: Myalgias Skin: Denies: Rash Neurological: Denies: Dizziness Psychiatric: Denies: Anxiety Endocrine: Denies: Unexplained Weight Loss Hematologic/ Lymphatic: Reports: Anemia Subjectve: Pleasant gentleman in no apparent distress. Objective: Vital Signs Temp Pulse Resp BP Pulse Ox 98 F 60 16 110/62 94 03/25/19 16:00 03/25/19 16:00 03/25/19 16:00 03/25/19 16:00 03/25/19 16:00 Oxygen Flow Rate (L/min) 4 Oxygen Delivery Method Nasal Cannula Weight: 211 lb 10.3 oz Body Mass Index (BMI) 30.3 General: Awake, Alert, Oriented x 3 HEENT: PERRL, EOMI, Sclera Non Icteric Neck: Supple, Good ROM, No Lymph Node Enlargement Lungs: Clear to auscultation Cardiovascular: Regular Rhythm, Normal S1, Normal S2, No Murmurs, No Rubs, No Gallops Vascular: No Carotid Bruits, Normal Femoral Pulses, Normal Radial Pulses, Normal Dorsalis Pedal Pulse, Normal Posterior Tibial Pulses Abdomen: Bowel Sounds Present, Soft, Non Tender, No HSM, No Organomegaly Extremities: No Cyanosis, No Clubbing, No edema Musculoskeletal: No Erythema Skin: No Rashes Lymphatic: No Lymph Node Enlargement Neurological: No Focal Motor or Sensory Deficit Psych/Mental Status: Appropriate 03/25/19 10:47: WBC 14.9 H, RBC 4.25 L, Hgb 12.7 L, Hct 38.6 L, MCV 90.8, MCH 29.9, MCHC 32.9, RDW 14.7 H, RDW Differential 47.8 H, Plt Count 223, MPV 9.5, Immature Gran % (Auto) 0.100, Neut % (Auto) 90.5 H, Lymph % (Auto) 2.8 L, [place] % (Auto) 6.3, Eos % (Auto) 0.0, Baso % (Auto) 0.3, Absolute Neuts (auto) 13.5 H, Total Counted Not Reportable 03/25/19 10:47: Sodium 141, Potassium 4.5, Chloride 110 H, Carbon Dioxide 25.0, Anion Gap 6, BUN 34 H, Creatinine 1.54 H, Est GFR (MDRD) Af Amer 58 L, Est GFR (MDRD) Non-Af 48 L, BUN/Creatinine Ratio 22.1 H, Glucose 172 H, Calcium 8.3 L, Troponin I 0.069 H 03/25/19 15:46: Troponin I 0.084 H Rhythm: EKG: Normal sinus rhythm ventricular paced ECHO: Global reduction in left ventricular ejection fraction estimated at 20% Assessment/Plan 1. Ventricular tachycardia * Patient presents with a syncopal episode and is noted to have a wide-complex tachycardia consistent with ventricular tachycardia status post defibrillator discharge. The etiology of the above is not entirely clear. He does have a global cardiomyopathy. * My recommendation would be to perform a cardiac catheterization and depending on the findings further recommendations will be made. * He will continue the amiodarone in the meantime. * 2. Ischemic cardiomyopathy * Does have a cardiomyopathy out of proportion to his coronary artery disease. * At this time will continue with a beta-dameon * Due to his renal dysfunction ARB or AJ inhibitor is relatively contraindicated * 3. Congestive heart failure * He does have evidence of congestive heart failure Keith Heart Association class II-III * We will continue with current medication and diuretics * 4. Status post ICD implantation * He is status post ICD implantation with ICD discharge. His defibrillator interrogation today did confirm the above. * * 5. Coronary artery disease * He does have coronary artery disease status post angioplasty and stenting of the left circumflex artery. His last catheterization in 2016 did not demonstrate any significant stenosis. He will remain on the aspirin and the clopidogrel. * Thank you for allowing me to participate in the care of your patient. Please don't hesitate to call if any issues arise
[2019-03-25 18:09] LABS: Magnesium 2.3 mg/dL (1.6-2.6)
[2019-03-25] MEDS: Atorvastatin Calcium 20 MG Tablet PO (22:17)
[2019-03-25] MEDS: 0.9% NaCl Peripheral Flush Adult/Peds IV (22:17)
[2019-03-25] MEDS: Carvedilol 25 MG Tablet PO (22:17)
[2019-03-25 23:05] LABS: Red Blood Cells-Urine 0 SEEN /hpf (0-5)
[2019-03-25 23:09] LABS: Color, Urine Yellow (Yellow); Glucose, Dipstick Normal (Normal); Ketone-Dipstick Negative (Negative); Leukocyte Esterase-Dipstick Negative /ul (Negative); Nitrite-Dipstick Negative (Negative); Occult Blood-Urine Negative /ul (Negative); Protein-Dipstick 15 mg/dl (Negative); Urine Bilirubin Dipstick Negative (Negative); Urine Clarity Sl. Cloudy (Clear); Urine Urobilinogen 1 mg/dl (Normal)
[2019-03-25 23:22] LABS: Bacteria RARE /hpf (None Seen); Squamous Epithelial Cells - UA 0-5 SEEN /hpf (0-5); White Blood Cells 0-5 SEEN /hpf (0-5)
[2019-03-25 23:23] LABS: Mucous, Urine RARE /hpf (<or=2+)
[2019-03-26] VITALS (13 sets, daily range): BP systolic 88–132; BP diastolic 36–65; PULSE 60–61; RESP 16–18; TEMP 36.9–37.1; O2SAT 94–100
[2019-03-26 05:27] LABS: Absolute Lymphocyte Count 1.06 X10^3/ul (0.83-4.51); Absolute Neutrophil Count 9.5 X10^3/uL (2.0-7.7); Basophil# 0.06 X10^3/uL; Basophil% 0.5 % (0-1); Eosinophil# 0.09 X10^3/uL; Eosinophils% 0.8 % (0-5); Hematocrit 34.2 % (40-54); Hemoglobin 11.3 g/dl (13.0-16.5); Lymphocyte # 1.06 X10^3/ul (4.0); Mean Corpuscular Hgb 29.7 pg (27.0-32.0); Mean Platelet Vol. 9.8 fl (6.2-12.0); Monocyte# 1.05 X10^3/uL; Monocyte% 8.9 % (0-10); Neutrophil # 9.46 X10^3/uL (2.7-7.7); Neutrophil % 80.6 % (47-70); Platelet Count 209 K/mm3 (150-450); RBC Distribution Width CV 14.6 % (11.6-14.6); RBC Distribution Width SD 46.5 fl (35.1-43.9); White Blood Count 11.7 K/mm3 (4.4-11.0)
[2019-03-26 05:28] LABS: POSITIVE COUNT NO; POSITIVE DIFFERENTIAL NO; POSITIVE MORPHOLOGY NO
[2019-03-26 05:29] LABS: International Normalized Ratio 1.3
[2019-03-26 05:38] LABS: Anion Gap 6 (5-15); BUN 36 mg/dL (7-18); BUN/Creat Ratio 27.3 RATIO (10-20); Calcium,Total 8.2 mg/dL (8.5-10.1); Chloride 112 mmol/L (98-107); Cholesterol 103 mg/dL (200); Creatinine, Serum 1.32 mg/dL (0.70-1.30); EST Glomerular Filtration Rate 57 mL/min (>60); Est Glom Filt Rate - Afr Amer 69 mL/min (>60); Glucose 112 mg/dL (74-106); High Density Lipoprotein 55 mg/dL; Potassium 3.9 mmol/L (3.5-5.1); Sodium Level 143 mmol/L (136-145); Triglycerides 73 mg/dL; Very Low Density Lipoprotein 15 mg/dL (5-40)
--- NOTE | 2019-03-26 05:55 | EKG12_ITS ---
Test Reason : AM EKG Blood Pressure : / mmHG Vent. Rate : 060 BPM Atrial Rate : 060 BPM P-R Int : 214 ms QRS Dur : 174 ms QT Int : 512 ms P-R-T Axes : 032 -40 074 degrees QTc Int : 512 ms Atrial-paced rhythm with prolonged AV conduction Left axis deviation Left bundle branch block Abnormal ECG When compared with ECG of 30-DEC-2017 02:09, T wave inversion no longer evident in Inferior leads Nonspecific T wave abnormality, worse in Lateral leads Confirmed by MELISSA TIWARI, VINOD ([id number]), image editor DENISE FOURNIER ([id number]) on 03/27/2019 11:08:55 AM Referred By: Vlad Jarvis Confirmed By:NATALIA TORRES MD
[2019-03-26] MEDS: Amiodarone 200 MG Tablet PO (06:06)
[2019-03-26] MEDS: Aspirin 81 MG TAB.CHEW PO (06:06)
[2019-03-26] MEDS: Clopidogrel Bisulfate 75 MG Tablet PO (06:06)
[2019-03-26] MEDS: Levothyroxine 50 MCG Tablet PO (06:06)
[2019-03-26] MEDS: amLODIPine 2.5 MG Tablet PO (06:06)
[2019-03-26] MEDS: Carvedilol 25 MG Tablet PO (06:07)
--- NOTE | 2019-03-26 06:53 | NURSING ---
Report called to Melvin in [facility].
--- NOTE | 2019-03-26 07:57 | PN.CARD_ITS ---
Subjectve: Patient seen and evaluated. Objective: Vital Signs Temp Pulse Resp BP Pulse Ox 98.5 F 60 18 111/62 94 03/26/19 06:00 03/26/19 06:45 03/26/19 06:00 03/26/19 06:45 03/26/19 06:00 Oxygen Flow Rate (L/min) 2 Oxygen Delivery Method Room Air Weight: 211 lb 10.3 oz Body Mass Index (BMI) 30.3 Orthostatic Vital Signs Start: 03/26/19 06:44 Freq: q24h Status: Active Protocol: Activity Type Activity Date Activity User E-Sign Co-Sign Detail Recorded Client Recorded Date Recorded By Document 03/26/19 06:45 [id number] 03/26/19 06:48 HS 03/26/19 06:45 Orthostatic Vitals Standing -Blood Pressure (90/60-120/80) 100/51 L -Extremity Use Right Arm -Pulse Rate (60-100) 61 Sitting -Blood Pressure (90/60-120/80) 110/51 L -Extremity Use Right Arm -Pulse Rate (60-100) 61 Lying -Blood Pressure (90/60-120/80) 111/62 -Extremity Use Right Arm -Pulse Rate (60-100) 60 Intake and Output for Last 24 Hours 03/24/19 03/25/19 03/26/19 23:59 23:59 23:59 Intake Total 240 / 240 832 / 832 Balance 240 / 240 832 / 832 General: Awake, Alert, Oriented x 3 HEENT: PERRL, EOMI, Sclera Non Icteric Neck: Supple, Good ROM, No Lymph Node Enlargement Lungs: Clear to auscultation Cardiovascular: Regular Rhythm, Normal S1, Normal S2, No Murmurs, No Rubs, No Gallops Vascular: No Carotid Bruits, Normal Femoral Pulses, Normal Radial Pulses, Normal Dorsalis Pedal Pulse, Normal Posterior Tibial Pulses Abdomen: Bowel Sounds Present, Soft, Non Tender, No HSM, No Organomegaly Extremities: No Cyanosis, No Clubbing, No edema Musculoskeletal: No Erythema Skin: No Rashes Lymphatic: No Lymph Node Enlargement Neurological: No Focal Motor or Sensory Deficit Psych/Mental Status: Appropriate 03/25/19 10:47: WBC 14.9 H, RBC 4.25 L, Hgb 12.7 L, Hct 38.6 L, MCV 90.8, MCH 29.9, MCHC 32.9, RDW 14.7 H, RDW Differential 47.8 H, Plt Count 223, MPV 9.5, Immature Gran % (Auto) 0.100, Neut % (Auto) 90.5 H, Lymph % (Auto) 2.8 L, [place] % (Auto) 6.3, Eos % (Auto) 0.0, Baso % (Auto) 0.3, Absolute Neuts (auto) 13.5 H, Total Counted Not Reportable 03/25/19 10:47: Sodium 141, Potassium 4.5, Chloride 110 H, Carbon Dioxide 25.0, Anion Gap 6, BUN 34 H, Creatinine 1.54 H, Est GFR (MDRD) Af Amer 58 L, Est GFR (MDRD) Non-Af 48 L, BUN/Creatinine Ratio 22.1 H, Glucose 172 H, Calcium 8.3 L, Troponin I 0.069 H 03/25/19 15:46: Troponin I 0.084 H 03/25/19 15:46: Magnesium 2.3 03/25/19 18:25: Troponin I 0.084 H 03/25/19 22:50: Urine Color Yellow, Urine Clarity Sl. Cloudy, Urine pH 5.0, Ur Specific [place] 1.020, Urine Protein 15 H, Urine Glucose (UA) Normal, Urine Ketones Negative, Urine Occult Blood Negative, Urine Nitrite Negative, Urine Bilirubin Negative, Urine Urobilinogen 1 H, Ur Leukocyte Esterase Negative, Urine RBC 0 SEEN, Urine WBC 0-5 SEEN 03/26/19 05:14: Sodium 143, Potassium 3.9, Chloride 112 H, Carbon Dioxide 25.0, Anion Gap 6, BUN 36 H, Creatinine 1.32 H, Est GFR (MDRD) Af Amer 69, Est GFR (MDRD) Non-Af 57 L, BUN/Creatinine Ratio 27.3 H, Glucose 112 H, Calcium 8.2 L, Triglycerides 73, Cholesterol 103, LDL Cholesterol 33, VLDL Cholesterol 15, HDL Cholesterol 55 03/26/19 05:14: WBC 11.7 H, RBC 3.80 L, Hgb 11.3 L, Hct 34.2 L, MCV 90.0, MCH 29.7, MCHC 33.0, RDW 14.6, RDW Differential 46.5 H, Plt Count 209, MPV 9.8, Immature Gran % (Auto) 0.200, Neut % (Auto) 80.6 H, Lymph % (Auto) 9.0 L, [place] % (Auto) 8.9, Eos % (Auto) 0.8, Baso % (Auto) 0.5, Absolute Neuts (auto) 9.5 H, T otal Counted Not Reportable 03/26/19 05:14: PT 16.0 H, INR 1.3, APTT 34.0 Rhythm: EKG: ECHO: Stress Test: Cardiac Cath: PCI: CT Surgery: Holter monitor: EPS: PPM: CXR: Chest CT Scan: Medical Necessity - Tobacco Use Smoking Status: Former smoker Tobacco Use: Cigarettes Assessment/Plan 1. Ventricular tachycardia * Patient presents with a syncopal episode and is noted to have a wide-complex tachycardia consistent with ventricular tachycardia status post defibrillator discharge. The etiology of the above is not entirely clear. He does have a global cardiomyopathy. * My recommendation would be to perform a cardiac catheterization and depending on the findings further recommendations will be made. * He will continue the amiodarone in the meantime. * 2. Ischemic cardiomyopathy * Does have a cardiomyopathy out of proportion to his coronary artery disease. His ejection fraction by echocardiogram was noted to be approximately 20%. * At this time will continue with a beta-dameon * Due to his renal dysfunction ARB or AJ inhibitor is relatively contraindicated * 3. Congestive heart failure * He does have evidence of congestive heart failure [place] Heart Association class II-III * We will continue with current medication and diuretics * 4. Status post ICD implantation * He is status post ICD implantation with ICD discharge. His defibrillator interrogation today did confirm the above. * * 5. Coronary artery disease * He does have coronary artery disease status post angioplasty and stenting of the left circumflex artery. His last catheterization in 2016 did not demonstrate any significant stenosis. * His catheterization today demonstrated the following: Normal left main coronary artery. Left anterior descending artery with no significant stenosis. Left circumflex artery previously stented with an eccentric 40% stenosis prior to the stent. The stent itself is patent. Dominant circumflex artery. Nondominant right coronary artery no significant disease. I will discuss the above with the rivet thrower this afternoon and get back to you on the plans.
--- NOTE | 2019-03-26 08:10 | CL.D_ITS ---
Patient Name: LUL NAIR Study Date: 03/26/2019 Performing: Jatin Maldonado MD Ht: 70.07 inches 178 cm : 1950 Wt: 211.64 lbs 96 kg Age: 68 Gender: male BSA: 2.14 PROCEDURE(S) PERFORMED [id number] CLINICAL PROFILE AND INDICATIONS Indications: Cardiac Arrythmia Heart Failure: NYHA Class: 3, Newly Diagnosed: No, Heart Failure Type: Systolic Stress/Imaging Stress/Image Study Performed: No CAD Presentations: No Sxs, no angina. CONCLUSIONS Mild to moderate disease involving the proximal end of the stent of the circumflex artery. The above appears to be unchanged from previous in 2016. Rest of the arteries appeared to be without signific ant stenosis. RECOMMENDATIONS Medical therapy EP referral DESCRIPTION OF PROCEDURE The patient arrived to the procedure lab. The risks and benefits of the procedure as well as a full d escription of our services here and current unavailability of surgical backup were fully explained to the patient and/or their significant other prior to the catheterization. The Timeout was completed, verifying the correct patient and procedure. The patient's procedural site was prepped and draped in the usual fashion. Local anesthetic was given subcutaneously to right radial region with Lidocaine 2% . Using a modified Seldinger technique, arterial access was obtained via the right radial artery, a 6 Fr sheath was inserted. Left Coronary Artery selective angiography was performed in multiple views u sing a 5 Fr. 4.0 Gratis catheter. Right Coronary Artery selective angiography was then performed in mu ltiple views using a 5 Fr. 4.0 Gratis catheter.The arterial sheath was pulled and a TR Band was applie d for hemostasis CORONARY ANGIOGRAPHY DOMINANCE: Left Dominant LEFT HEART ASSESSMENT Left Ventricular Ejection Fraction: by Echo 20 % Global Hypokinesis - Severe LEFT MAIN: Angiographically normal LEFT ANTERIOR DESCENDING ARTERY: Mild luminal irregularities CIRCUMFLEX ARTERY: MID CIRC: Previously placed stent has instent 40 % restenosis with a new at proximal edge of stent RIGHT CORONARY ARTERY: No significant disease noted COMPLICATIONS No Complications PROCEDURE MEDICATIONS Versed 1 mg IV Fentanyl 25 mcg IV Oxygen: 2 L/min via nasal cannula Heparin diluted in 23cc Heparinized saline. Patient given 4cc IA of this solution. 03/26/2019 07:37:2 4 Verapamil 2.5mg, Ntg 100mcgs, 2000 units of Heparin diluted in 23cc Heparinized saline. Patient give n 4cc IA of this solution. 03/26/2019 07:37:24 SUMMARY OF HEMODYNAMIC DATA Time AIR REST ECG 07:14:06 AO 99/54 (72) SA 07:41:29 Signed By Jatin Maldonado MD On 03/26/2019 08:09:57 Jatin Maldonado MD
--- NOTE | 2019-03-26 09:55 | PCM.CONS.GEN ---
Reason for Consult Date of Consultation: 03/26/19 Reason for Consultation: Stroke History of Present Illness: The patient is a 68 year old M with a history of atrial fibrillation and apparently has a pacemaker, who was found on the floor. He came to the ER and CAT scan by report showed stroke. Subsequently he was noted to have ventricular tachycardia and possible electrophysiologic intervention is being considered. He cannot have an MRI due to his pacemaker. 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 Maldonado at [facility] Stented coronary artery (Chronic) 05/16/2006 mid to distal AV cx facilitated by [facility] Aspiration cath using Taxus KEIKO Nonrheumatic mitral (valve) insufficiency (Chronic) Atherosclerotic heart disease of [place] coronary artery without angina pectoris (Chronic) History of radiofrequency ablation procedure for cardiac arrhythmia (Chronic) VT ablation 03/04/[address] Livingston @ [place] Hyperlipidemia (Chronic) Hypertension (Chronic) ICD (implantable cardioverter-defibrillator) in place (Chronic) initial implant 09/02/2006 @ [facility] per Dr. Florez ; gen change 06/05/2012 @ [facility] per Dr. 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) Z79.01 Nonrheumatic mitral (valve) insufficiency (Chronic) I34.0 Atherosclerotic heart disease of [place] coronary artery without angina pectoris (Chronic) I25.10 Hyperlipidemia (Chronic) E78.5 Hypertension (Chronic) I10 Ventricular tachycardia (Resolved) I47.2 PAF (paroxysmal atrial fibrillation) (Chronic) I48.0 Cardiomyopathy, ischemic (Chronic) I25.5 Allergies Penicillins Allergy (Verified 11/04/18 14:58) Unknown was told had a reaction as a child Home Medications: Ambulatory Orders Medication Instructions Recorded Multivit-Min/FA/Lycopene/Lut 1 tab PO DAILY 03/01/14 [Centrum Silver Tablet] Aspirin [Aspirin, Baby] 81 mg PO DAILY@0800 10/31/15 ipratropium bromide 42 mcg (0.06 2 spray INTRANASAL TID PRN 11/04/18 %) nasal spray Amiodarone HCl [Cordarone] 200 mg PO DAILY 03/25/19 Amlodipine Besylate [Norvasc] 2.5 mg PO QDAY 03/25/19 Atorvastatin Calcium [Lipitor] 20 mg PO QHS 03/25/19 Carvedilol 25 mg PO BID 03/25/19 Clopidogrel Bisulfate [Clopidogrel] 75 mg PO DAILY 03/25/19 Furosemide [Lasix] 20 mg PO QDAY 03/25/19 Levothyroxine Sodium 50 mg PO MOTUWETHFRSA 03/25/19 Surgical History: Surgical History (Last Reviewed 03/26/19 @ 09:56 by Owen Buitrago MD) History of left heart catheterization (Chronic) Z98.890 05/16/056 @ [facility], 03/02/2014 and 11/01/2015, Dr. Maldonado at [facility] Stented coronary artery (Chronic) Z95.5 05/16/2006 mid to distal AV cx facilitated by [place] Aspiration cath using Taxus KEIKO History of radiofrequency ablation procedure for cardiac arrhythmia (Chronic) Z98.890 VT ablation 03/04/[address] Livingston @ [place] ICD (implantable cardioverter-defibrillator) in place (Chronic) Z95.810 initial implant 09/02/2006 @ [facility] per Dr. Florez ; gen change 06/05/2012 @ [facility] per Dr. Ely Surgical History: angioplasty, - - AICD placement in 2011, ablation procedure for ventricular tachycardia February 2014. Psychiatric History: No pertinent psych hx Lives: Spouse/ Significant Other Smoking Status: Former smoker Tobacco Use: Cigarettes Drugs: None - *Family History Maternal Family History: Family History (Last Reviewed 03/26/19 @ 09:57 by Owen Buitrago MD) Mother Sudden cardiac Father No problems noted. History Items: - - from sudden cardiac arrest. Paternal Family History: Family History (Last Reviewed 06/27/19 @ 09:57 by Owen Buitrago MD) Mother Sudden cardiac Father No problems noted. History Items: - - sudden Patient Problems: Active and Suspected Problems (Last Reviewed 03/26/19 @ 09:56 by Owen Buitrago MD) Syncope (Acute) Ischemic stroke without residual deficits (Acute) Lip laceration (Acute) Syncope (Acute) CVA (cerebral vascular accident) (Acute) Facial laceration (Acute) - Physical Exam Vital Signs Temp Pulse Resp BP Pulse Ox 36.9 C 60 18 108/36 L 95 03/26/19 06:00 03/26/19 09:30 03/26/19 09:30 03/26/19 09:30 03/26/19 09:30 Oxygen Flow Rate (L/min) 2 Oxygen Delivery Method Room Air Weight: 96 kg Body Mass Index (BMI) 30.3 Orthostatic Vital Signs Start: 03/26/19 06:44 Freq: q24h Status: Active Protocol: Activity Type Activity Date Activity User E-Sign Co-Sign Detail Recorded Client Recorded Date Recorded By Document 03/26/19 06:45 HS [id number] 03/26/19 06:48 HS 03/26/19 06:45 Orthostatic Vitals Standing -Blood Pressure (90/60-120/80) 100/51 L -Extremity Use Right Arm -Pulse Rate (60-100) 61 Sitting -Blood Pressure (90/60-120/80) 110/51 L -Extremity Use Right Arm -Pulse Rate (60-100) 61 Lying -Blood Pressure (90/60-120/80) 111/62 -Extremity Use Right Arm -Pulse Rate (60-100) 60 Intake and Output for Last 24 Hours 03/24/19 03/25/19 03/26/19 23:59 23:59 23:59 Intake Total 240 / 240 832 / 832 Balance 240 / 240 832 / 832 Laboratory Tests Past 24 Hrs 03/25/19 03/25/19 03/25/19 10:47 10:47 15:46 WBC 14.9 H RBC 4.25 L Hgb 12.7 L Hct 38.6 L MCV 90.8 MCH 29.9 MCHC 32.9 RDW 14.7 H RDW Differential 47.8 H Plt Count 223 MPV 9.5 Immature Gran % (Auto) 0.100 Neut % (Auto) 90.5 H Lymph % (Auto) 2.8 L [place] % (Auto) 6.3 Eos % (Auto) 0.0 Baso % (Auto) 0.3 Absolute Neuts (auto) 13.5 H Absolute Lymphs (auto) 0.42 L Total Counted Not Reportable Differential Comment COMMENT PT INR APTT Sodium 141 Potassium 4.5 Chloride 110 H Carbon Dioxide 25.0 Anion Gap 6 BUN 34 H Creatinine 1.54 H Estim Creat Clear Calc 47.40 Est GFR (MDRD) Af Amer 58 L Est GFR (MDRD) Non-Af 48 L BUN/Creatinine Ratio 22.1 H Glucose 172 H Calcium 8.3 L Magnesium Troponin I 0.069 H 0.084 H Triglycerides Cholesterol LDL Cholesterol VLDL Cholesterol HDL Cholesterol TSH 2.55 Urine Color Urine Clarity Urine pH Ur Specific [place] Urine Protein Urine Glucose (UA) Urine Ketones Urine Occult Blood Urine Nitrite Urine Bilirubin Urine Urobilinogen Ur Leukocyte Esterase Urine RBC Urine WBC Ur Squamous Epith Cells Urine Bacteria Urine Mucus 03/25/19 03/25/19 03/25/19 15:46 18:25 22:50 WBC RBC Hgb Hct MCV MCH MCHC RDW RDW Differential Plt Count MPV Immature Gran % (Auto) Neut % (Auto) Lymph % (Auto) [place] % (Auto) Eos % (Auto) Baso % (Auto) Absolute Neuts (auto) Absolute Lymphs (auto) Total Counted Differential Comment PT INR APTT Sodium Potassium Chloride Carbon Dioxide Anion Gap BUN Creatinine Estim Creat Clear Calc Est GFR (MDRD) Af Amer Est GFR (MDRD) Non-Af BUN/Creatinine Ratio Glucose Calcium Magnesium 2.3 Troponin I 0.084 H Triglycerides Cholesterol LDL Cholesterol VLDL Cholesterol HDL Cholesterol TSH Urine Color Yellow Urine Clarity Sl. Cloudy Urine pH 5.0 Ur Specific [place] 1.020 Urine Protein 15 H Urine Glucose (UA) Normal Urine Ketones Negative Urine Occult Blood Negative Urine Nitrite Negative Urine Bilirubin Negative Urine Urobilinogen 1 H Ur Leukocyte Esterase Negative Urine RBC 0 SEEN Urine WBC 0-5 SEEN Ur Squamous Epith Cells 0-5 SEEN Urine Bacteria RARE Urine Mucus RARE 03/26/19 03/26/19 03/26/19 05:14 05:14 05:14 WBC 11.7 H RBC 3.80 L Hgb 11.3 L Hct 34.2 L MCV 90.0 MCH 29.7 MCHC 33.0 RDW 14.6 RDW Differential 46.5 H Plt Count 209 MPV 9.8 Immature Gran % (Auto) 0.200 Neut % (Auto) 80.6 H Lymph % (Auto) 9.0 L [place] % (Auto) 8.9 Eos % (Auto) 0.8 Baso % (Auto) 0.5 Absolute Neuts (auto) 9.5 H Absolute Lymphs (auto) 1.06 Total Counted Not Reportable Differential Comment PT 16.0 H INR 1.3 APTT 34.0 Sodium 143 Potassium 3.9 Chloride 112 H Carbon Dioxide 25.0 Anion Gap 6 BUN 36 H Creatinine 1.32 H Estim Creat Clear Calc 55.30 Est GFR (MDRD) Af Amer 69 Est GFR (MDRD) Non-Af 57 L BUN/Creatinine Ratio 27.3 H Glucose 112 H Calcium 8.2 L Magnesium Troponin I Triglycerides 73 Cholesterol 103 LDL Cholesterol 33 VLDL Cholesterol 15 HDL Cholesterol 55 TSH Urine Color Urine Clarity Urine pH Ur Specific [place] Urine Protein Urine Glucose (UA) Urine Ketones Urine Occult Blood Urine Nitrite Urine Bilirubin Urine Urobilinogen Ur Leukocyte Esterase Urine RBC Urine WBC Ur Squamous Epith Cells Urine Bacteria Urine Mucus Current Home Med List Medication Instructions Recorded Confirmed Type Multivit-Min/FA/Lycopene/Lut 1 tab PO DAILY 03/01/14 03/25/19 History [Centrum Silver Tablet] Aspirin [Aspirin, Baby] 81 mg PO DAILY@0800 10/31/15 03/25/19 History ipratropium bromide 42 mcg (0.06 2 spray INTRANASAL TID PRN 11/04/18 03/25/19 History %) nasal spray Amiodarone HCl [Cordarone] 200 mg PO DAILY 03/25/19 03/25/19 History Amlodipine Besylate [Norvasc] 2.5 mg PO QDAY 03/25/19 03/25/19 History Atorvastatin Calcium [Lipitor] 20 mg PO QHS 03/25/19 03/25/19 History Carvedilol 25 mg PO BID 03/25/19 03/25/19 History Clopidogrel Bisulfate [Clopidogrel] 75 mg PO DAILY 03/25/19 03/25/19 History Furosemide [Lasix] 20 mg PO QDAY 03/25/19 03/25/19 History Levothyroxine Sodium 50 mg PO MOTUWETHFRSA 03/25/19 03/25/19 History Current Medications Generic Name Dose Route Start Last Admin Trade Name Freq PRN Reason Stop Dose Admin Acetaminophen 650 mg 03/25/19 14:56 Tylenol PO Q6H PRN PRN Mild pain 1-3/Temp > 100.7 F Amiodarone HCl 200 mg 03/26/19 10:00 03/26/19 06:06 Cordarone PO 200 mg DAILY SASHA Administration Amlodipine Besylate 2.5 mg 03/26/19 10:00 03/26/19 06:06 Norvasc PO 2.5 mg DAILY SASHA Administration Aspirin 81 mg 03/26/19 08:00 03/26/19 06:06 Aspirin, Baby PO 81 mg DAILY@0800 [facility] Administration Atorvastatin Calcium 20 mg 03/25/19 22:00 03/25/19 22:17 Lipitor PO 20 mg QHS SASHA Administration Carvedilol 25 mg 03/25/19 22:00 03/26/19 06:07 Coreg PO 25 mg BID SASHA Administration Clopidogrel Bisulfate 75 mg 03/26/19 10:00 03/26/19 06:06 Plavix PO 75 mg DAILY [facility] Administration Glucagon 1 mg 03/25/19 14:56 IM .X1 PRN Hypoglycemia Sodium Chloride 1,000 mls @ 0 mls/hr 03/26/19 05:00 IV .Q0M SASHA KVO Sodium Chloride 250 mls @ 15 mls/hr 03/25/19 19:35 IV .[id number] PRN SALINE FLUSH Ipratropium [place] 2 spray 03/25/19 14:56 Atrovent Nasal [place] (G) NASAL TID PRN CONGESTION Levothyroxine Sodium 50 mcg 03/26/19 06:00 03/26/19 06:06 Synthroid PO 50 mcg DAILY@0600 [facility] Administration Multivitamins/Minerals 1 tablet 03/26/19 08:00 03/26/19 08:23 Multivitamin With Minerals PO Not Given DAILY@0800 [facility] Ondansetron HCl 4 mg 03/25/19 14:56 Zofran IV Q8H PRN PRN NAUSEA/VOMITING Sodium Chloride 5 - 15 ml 03/25/19 16:10 03/25/19 22:17 IV 10 ml UD PRN Administration SALINE FLUSH CT reviewed, he has an old left periventricular subcortical white matter infarct which is small and not likely symptomatic. Assessment/Plan All Active Problems (Last Reviewed 03/26/19 @ 09:56 by Owen Buitrago MD) Syncope (Acute) Ischemic stroke without residual deficits (Acute) Lip laceration (Acute) Syncope (Acute) CVA (cerebral vascular accident) (Acute) Facial laceration (Acute) Ventricular tachycardia (Resolved) Acute systolic (congestive) heart failure (Resolved)
--- NOTE | 2019-03-26 13:03 | CASEMGMT ---
SW completed a PHQ9 with patient as he may have had a Stroke. Patient scored a 0. Arline CENTENO
--- NOTE | 2019-03-26 13:59 | PCM.DC.SUM ---
<Bonifacio Stovall - Last Filed: 03/26/19 13:59> Discharge Date and Diagnosis Date of Admission: 03/25/19 Date of Discharge: 03/26/19 - Primary Discharge Diagnosis Active and Suspected Problems (Last Reviewed 03/26/19 @ 09:56 by Owen Buitrago MD) Syncope secondary to V. 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 Maldonado at [facility] Stented coronary artery (Chronic) 05/16/2006 mid to distal AV cx facilitated by [place] Aspiration cath using [employer] KEIKO Nonrheumatic mitral (valve) insufficiency (Chronic) Atherosclerotic heart disease of [place] coronary artery without angina pectoris (Chronic) History of radiofrequency ablation procedure for cardiac arrhythmia (Chronic) VT ablation 03/04/[address] Livingston @ [place] Hyperlipidemia (Chronic) Hypertension (Chronic) ICD (implantable cardioverter-defibrillator) in place (Chronic) initial implant 09/02/2006 @ [facility] per Dr. Florez ; gen change 06/05/2012 @ [facility] per Dr. Ely PAF (paroxysmal atrial fibrillation) (Chronic) Cardiomyopathy, ischemic (Chronic) Hospital Course and Treatment Imaging Results: CT/Brain/Head without Contrast IMPRESSION: 1. No acute intracranial disease. 2. Moderate size focal area of probable old infarct left anterior periventricular white matter/sykes radiata region. Somewhat unusual to have such an isolated appearance, and therefore further evaluation with MRI brain is warranted. 3. Partially seen left suboccipital soft tissue soft tissue density lobulated mass measuring at least 2.0 x 2.3 cm. Individualized dose optimization techniques were used for this CT. at 1210 Reported and signed by: Gal Magdaleno MD RAD/Chest 1 View (Portable) IMPRESSION: Haziness involving both central lung larsen more on the left Moderate Cardiomegaly. Echo: Interpretation Summary Severely dilated left ventricle. The estimated ejection fraction is 20 %. Stage 2 diastolic dysfunction. The left atrium is moderately enlarged. Pulmonary artery systolic pressure is 44 mmHg. Mild pulmonary hypertension. Contrast injection was performed. Left Heart Cath: CONCLUSIONS Mild to moderate disease involving the proximal end of the stent of the circumflex artery. The above appears to be unchanged from previous in 2016. Rest of the arteries appeared to be without significant stenosis. RECOMMENDATIONS Medical therapy EP referral Consults: Neuro - Buitrago Cardiology - Erica Operations: None Procedures: 2-D Echocardiogram, Cardiac catheterization Summary of Care Provided: Hospital Course: The patient is a 68 year old M with past medical history of CAD with prior CABG and stent, ischemic cardiomyopathy with AICD in place, hypothyroidism, systolic congestive heart failure, hypertension, hyperlipidemia, obesity, who presented to the emergency room with syncope. He had stood up the morning of presentation got dizzy and laid back down. He woke up on the floor not knowing how he got there. He had lacerated his lip and had bruising on his face and knuckles. He reported no prior incidence of this. CT of the brain in the emergency room demonstrated moderate size focal area of probable old infarct. He could not have an MRI because of the defibrillator that he has. He was admitted to the PCU for possible stroke work-up. His pacemaker/ICD was interrogated and demonstrated 2 episodes of shocks administered. The patient had indeterminate troponin. He was taken for heart catheterization which showed mild to moderate disease unchanged from previous cath in 2016. Cardiology recommended that he be transferred for EP work-up. Patient was accepted at [facility] and transferred in stable condition. Neurology saw the patient and noted old left periventricular subcortical white matter infarct which is small and not likely symptomatic. This patient was seen by Bonifacio Stovall PA-C under the supervision of Doctor Garrett. [] - Physical Exam General: Alert, Oriented x3, Cooperative HEENT: Atraumatic, PERRLA, EOMI, Normocephalic, - - lac non bleeding and bruising present Neck: Supple, No JVD, Negative Carotid Bruits Lungs: Clear to auscultation, Normal air movement Cardiovascular: Regular rate, No murmurs Abdomen: Bowel Sounds Present, Soft, Non Tender Extremities: No edema, Capillary Refill Less than 3 Seconds Skin: No rashes, No breakdown Musculoskeletal: No Tenderness to Palpation of Joints or Extremities Neurological: Cranial nerves II-XII grossly intact Psych/Mental Status: Normal Affect, Appropriate Vital Signs Temp Pulse Resp BP Pulse Ox 98.7 F 60 16 90/58 L 95 03/26/19 10:00 03/26/19 11:00 03/26/19 11:00 03/26/19 11:00 03/26/19 11:00 Oxygen Flow Rate (L/min) 2 Oxygen Delivery Method Nasal Cannula Weight: 211 lb 10.3 oz Body Mass Index (BMI) 30.3 Orthostatic Vital Signs Start: 03/26/19 06:44 Freq: q24h Status: Active Protocol: Activity Type Activity Date Activity User E-Sign Co-Sign Detail Recorded Client Recorded Date Recorded By Document 03/26/19 06:45 HS [id number] 03/26/19 06:48 HS 03/26/19 06:45 Orthostatic Vitals Standing -Blood Pressure (90/60-120/80) 100/51 L -Extremity Use Right Arm -Pulse Rate (60-100) 61 Sitting -Blood Pressure (90/60-120/80) 110/51 L -Extremity Use Right Arm -Pulse Rate (60-100) 61 Lying -Blood Pressure (90/60-120/80) 111/62 -Extremity Use Right Arm -Pulse Rate (60-100) 60 Intake and Output for Last 24 Hours 03/24/19 03/25/19 03/26/19 23:59 23:59 23:59 Intake Total 240 / 240 1072 / 1072 Balance 240 / 240 1072 / 1072 Laboratory Tests Past 24 Hrs 03/25/19 03/25/19 03/25/19 15:46 15:46 18:25 WBC RBC Hgb Hct MCV MCH MCHC RDW RDW Differential Plt Count MPV Immature Gran % (Auto) Neut % (Auto) Lymph % (Auto) Rush % (Auto) Eos % (Auto) Baso % (Auto) Absolute Neuts (auto) Absolute Lymphs (auto) Total Counted PT INR APTT Sodium Potassium Chloride Carbon Dioxide Anion Gap BUN Creatinine Estim Creat Clear Calc Est GFR (MDRD) Af Amer Est GFR (MDRD) Non-Af BUN/Creatinine Ratio Glucose Calcium Magnesium 2.3 Troponin I 0.084 H 0.084 H Triglycerides Cholesterol LDL Cholesterol VLDL Cholesterol HDL Cholesterol TSH 2.55 Urine Color Urine Clarity Urine pH Ur Specific Mather Urine Protein Urine Glucose (UA) Urine Ketones Urine Occult Blood Urine Nitrite Urine Bilirubin Urine Urobilinogen Ur Leukocyte Esterase Urine RBC Urine WBC Ur Squamous Epith Cells Urine Bacteria Urine Mucus 03/25/19 03/26/19 03/26/19 22:50 05:14 05:14 WBC 11.7 H RBC 3.80 L Hgb 11.3 L Hct 34.2 L MCV 90.0 MCH 29.7 MCHC 33.0 RDW 14.6 RDW Differential 46.5 H Plt Count 209 MPV 9.8 Immature Gran % (Auto) 0.200 Neut % (Auto) 80.6 H Lymph % (Auto) 9.0 L Rush % (Auto) 8.9 Eos % (Auto) 0.8 Baso % (Auto) 0.5 Absolute Neuts (auto) 9.5 H Absolute Lymphs (auto) 1.06 Total Counted Not Reportable PT INR APTT Sodium 143 Potassium 3.9 Chloride 112 H Carbon Dioxide 25.0 Anion Gap 6 BUN 36 H Creatinine 1.32 H Estim Creat Clear Calc 55.30 Est GFR (MDRD) Af Amer 69 Est GFR (MDRD) Non-Af 57 L BUN/Creatinine Ratio 27.3 H Glucose 112 H Calcium 8.2 L Magnesium Troponin I Triglycerides 73 Cholesterol 103 LDL Cholesterol 33 VLDL Cholesterol 15 HDL Cholesterol 55 TSH Urine Color Yellow Urine Clarity Sl. Cloudy Urine pH 5.0 Ur Specific Mather 1.020 Urine Protein 15 H Urine Glucose (UA) Normal Urine Ketones Negative Urine Occult Blood Negative Urine Nitrite Negative Urine Bilirubin Negative Urine Urobilinogen 1 H Ur Leukocyte Esterase Negative Urine RBC 0 SEEN Urine WBC 0-5 SEEN Ur Squamous Epith Cells 0-5 SEEN Urine Bacteria RARE Urine Mucus RARE 03/26/19 05:14 WBC RBC Hgb Hct MCV MCH MCHC RDW RDW Differential Plt Count MPV Immature Gran % (Auto) Neut % (Auto) Lymph % (Auto) Rush % (Auto) Eos % (Auto) Baso % (Auto) Absolute Neuts (auto) Absolute Lymphs (auto) Total Counted PT 16.0 H INR 1.3 APTT 34.0 Sodium Potassium Chloride Carbon Dioxide Anion Gap BUN Creatinine Estim Creat Clear Calc Est GFR (MDRD) Af Amer Est GFR (MDRD) Non-Af BUN/Creatinine Ratio Glucose Calcium Magnesium Troponin I Triglycerides Cholesterol LDL Cholesterol VLDL Cholesterol HDL Cholesterol TSH Urine Color Urine Clarity Urine pH Ur Specific Mather Urine Protein Urine Glucose (UA) Urine Ketones Urine Occult Blood Urine Nitrite Urine Bilirubin Urine Urobilinogen Ur Leukocyte Esterase Urine RBC Urine WBC Ur Squamous Epith Cells Urine Bacteria Urine Mucus Discharge Diet: - - as directed by receiving facility Discharge Activity: - - as directed by receiving facility Home Medications: Medications to take at Discharge Multivit-Min/FA/Lycopene/Lut [Centrum Silver Tablet] 1 tab PO DAILY 03/01/14 Aspirin [Aspirin, Baby] 81 mg PO DAILY@0800 10/31/15 ipratropium bromide 42 mcg (0.06 %) nasal spray 2 spray INTRANASAL TID PRN 11/04/18 Amiodarone HCl [Cordarone] 200 mg PO DAILY 03/25/19 Amlodipine Besylate [Norvasc] 2.5 mg PO QDAY 03/25/19 Atorvastatin Calcium [Lipitor] 20 mg PO QHS 03/25/19 Carvedilol 25 mg PO BID 03/25/19 Clopidogrel Bisulfate [Clopidogrel] 75 mg PO DAILY 03/25/19 Furosemide [Lasix] 20 mg PO QDAY 03/25/19 Levothyroxine Sodium 50 mg PO [id number] 03/25/19 Primary Care Physician: Edgardo Garcia MD [Primary Care Provider] - Please follow up with your Primary Care Physician in: as directed by receiving facility Disposition: Acute care Hospital Minutes spent on discharge:: 35 Patient Condition:: Stable Medical Necessity - Tobacco Use Smoking Status: Former smoker Tobacco Use: Cigarettes Meaningful Use Info Meaningful Use Diagnoses (Choose all that apply): None applicable <Paintsil,Mcgregor - Last Filed: 03/28/19 13:33> Discharge Date and Diagnosis - Secondary Discharge Diagnosis Chronic Problems (Last Reviewed 03/26/19 @ 09:56 by Owen Buitrago MD) skilled nursing current use of amiodarone (Chronic) ICD (implantable cardioverter-defibrillator) in place (Chronic) History of acute congestive heart failure (Chronic) skilled nursing current use of anticoagulant (Chronic) History of left heart catheterization (Chronic) [facility], 03/02/2014 and 11/01/2015, Dr. Maldonado at [facility] Stented coronary artery (Chronic) 05/16/2006 mid to distal AV cx facilitated by [place] Aspiration cath using [employer] KEIKO Nonrheumatic mitral (valve) insufficiency (Chronic) Atherosclerotic heart disease of [place] coronary artery without angina pectoris (Chronic) History of radiofrequency ablation procedure for cardiac arrhythmia (Chronic) VT ablation 03/04/[address] Livingston @ [facility] Hyperlipidemia (Chronic) Hypertension (Chronic) ICD (implantable cardioverter-defibrillator) in place (Chronic) initial implant 09/02/2006 @ [facility] per Dr. Florez ; gen change 06/05/2012 @ [facility] per Dr. Ely PAF (paroxysmal atrial fibrillation) (Chronic) Cardiomyopathy, ischemic (Chronic) Hospital Course and Treatment Summary of Care Provided: The patient is a 68 year old M with past medical history of CAD status post stent, CABG with ischemic cardiomyopathy with AICD, EF 20%, hypertension, hyperlipidemia, obesity who comes in after syncopal episode. Patient was reportedly in his usual state of health until the morning of the admission when he got dizzy and laid down. He woke up on the floor, not sure how he got there. He had a laceration on his legs and bruising on his face and knuckles. He was brought to the emergency department. CT scan of the brain showed moderate sized foci of probably an old infarct. His pacemaker/ICD was interrogated and showed 2 episodes of V. tach for which shocks were administered. Patient had indeterminate troponins during his hospital course. Cardiology was consulted. He underwent cardiac cath that showed mild to moderate disease unchanged from his previous in 2016. It was arranged for patient to be seen by the television script writer and [facility]. Patient from admission was noted to have a left facial droop with deviation of the tongue to the right on exam. Patient was reportedly unable to do MRI of the brain because of his pacemaker. Discussed in detail with felled seam operator and also with the hospitalist accepting patients at [facility], patient would have follow-up work-up for his possible stroke in [facility] as we were later told that his pacemaker was compatible with MRI. On the day of discharge, he denies any complaints. He denies any weakness in extremities or tingling or numbness. Physical Exam General: Alert, Oriented x3, Cooperative, not pale, not jaundiced HEENT: Atraumatic, PERRLA, EOMI, Normocephalic, - -bruice, laceration to right side of lip Neck: Supple, No JVD, Negative Carotid Bruits Lungs: Clear to auscultation, Normal air movement Cardiovascular: Regular rate, No murmurs Abdomen: Bowel Sounds Present, Soft, Non Tender Extremities: Bilateral pedal edema Skin: No rashes, No breakdown Musculoskeletal: No Tenderness to Palpation of Joints or Extremities Neurological: Left facial droop, deviation of the tongue to the right, L4-5 in all extremities, no sensory deficit Psych/Mental Status: Normal Affect, Appropriate - Physical Exam Vital Signs Temp Pulse Resp BP Pulse Ox 98.7 F 60 16 90/58 L 95 03/26/19 10:00 03/26/19 11:00 03/26/19 11:00 03/26/19 11:00 03/26/19 11:00 Oxygen Flow Rate (L/min) 2 Oxygen Delivery Method Nasal Cannula Weight: 96 kg Body Mass Index (BMI) 30.3 Intake and Output for Last 24 Hours 03/26/19 03/27/19 03/28/19 23:59 23:59 23:59 Intake Total 1072 / 1072 Balance 1072 / 1072 Code Visit Inpatient E&M: 92057 Disch Hosp
== END 2019-03-26 14:33 | disposition short-term general hospital (02) | DRG 286 ==
LOC: ED 13:19 → PCU 16:30
PROVIDERS: Internal Medicine Cardiovascular Disease; Emergency Provider Emergency Medicine; Family Provider Family Medicine; PCP Family Medicine; Visit Provider Internal Medicine
DX: I47.2 Ventricular tachycardia (principal); I63.9 Cerebral infarction, unspecified; I50.22 Chronic systolic (congestive) heart failure; I13.0 Hypertensive heart and chronic kidney disease with heart failure and stage 1 through stage 4 chronic kidney disease, or unspecified chronic kidney disease; I25.10 Atherosclerotic heart disease of native coronary artery without angina pectoris; S01.511A Laceration without foreign body of lip, initial encounter; W06.XXXA Fall from bed, initial encounter; Y92.013 Bedroom of single-family (private) house as the place of occurrence of the external cause; S01.81XA Laceration without foreign body of other part of head, initial encounter; F17.210 Nicotine dependence, cigarettes, uncomplicated; I25.5 Ischemic cardiomyopathy; N18.3 Chronic kidney disease, stage 3 (moderate); Z95.810 Presence of automatic (implantable) cardiac defibrillator; Z79.82 Long term (current) use of aspirin; Z79.02 Long term (current) use of antithrombotics/antiplatelets; Z95.5 Presence of coronary angioplasty implant and graft; E03.9 Hypothyroidism, unspecified; Z86.73 Personal history of transient ischemic attack (TIA), and cerebral infarction without residual deficits
CPT/HCPCS: 36415; 70450; 71045; 80048; 80061; 81001; 83735; 84443; 84484; 85025; 85610; 85730; 92610; 93005; 93306; 93454; 97802; 99152; 99153; 99285; J7030; Q9957; Q9967; A4216; C1769; C1894; C8929

== ENCOUNTER → 2019-05-14 09:33 | Outpatient (CLI) | payer MEDICARE, OTHER, SELFPAY ==
[2019-04-24 09:27] VITALS: BMI 30.7
[2019-05-14 11:23] LABS: AST(SGOT) 26 U/L (15-37); Alanine Aminotransfer ALT/SGPT 31 U/L (16-61); Albumin, Serum 3.2 g/dL (3.2-5.0); Alkaline Phosphatase 83 U/L (45-117); Anion Gap 6 (5-15); BUN 26 mg/dL (7-18); BUN/Creat Ratio 19.3 RATIO (10-20); Bilirubin, Direct 0.14 mg/dL (0.00-0.30); Calcium,Total 8.9 mg/dL (8.5-10.1); Chloride 107 mmol/L (98-107); Cholesterol 139 mg/dL (200); Creatinine, Serum 1.35 mg/dL (0.70-1.30); EST Glomerular Filtration Rate 56 mL/min (>60); Est Glom Filt Rate - Afr Amer 67 mL/min (>60); Globulin 4.6 g/dL (2.2-4.2); Glucose 105 mg/dL (74-106); High Density Lipoprotein 65 mg/dL; Protein, Total 7.8 g/dL (6.4-8.2); Sodium Level 140 mmol/L (136-145); Triglycerides 83 mg/dL; Very Low Density Lipoprotein 17 mg/dL (5-40)
== END ==
PROVIDERS: Physician Assistant Medical; Family Provider Family Medicine; PCP Family Medicine
DX: N28.9 Disorder of kidney and ureter, unspecified (principal); E78.5 Hyperlipidemia, unspecified
CPT/HCPCS: 36415; 80048; 80061; 80076

== ENCOUNTER → 2019-07-29 14:20 | Outpatient (CLI) | payer MEDICARE, OTHER, SELFPAY ==
[2019-05-28 14:43] VITALS: BMI 30.7
[2019-07-29 15:01] LABS: Hematocrit 39.7 % (40-54); Hemoglobin 12.3 g/dL (13.0-16.5); Mean Corpuscular Hgb 27.4 pg (27.0-32.0); Mean Corpuscular Volume 88.4 fL (80-94); Mean Platelet Vol. 9.5 fl (6.2-12.0); Platelet Count 287 K/mm3 (150-450); RBC Distribution Width CV 14.2 % (11.6-14.6); RBC Distribution Width SD 45.5 fl (35.1-43.9); Red Blood Count 4.49 M/mm3 (4.6-6.2); White Blood Count 6.2 K/mm3 (4.4-11.0)
[2019-07-29 15:37] LABS: ALB/GLOB Ratio 0.9 RATIO (0.9-2.4); AST(SGOT) 40 U/L (15-37); Alanine Aminotransfer ALT/SGPT 46 U/L (16-61); Albumin, Serum 3.5 g/dL (3.2-5.0); Alkaline Phosphatase 70 U/L (45-117); Anion Gap 7 (5-15); BUN 29 mg/dL (7-18); Calcium,Total 8.7 mg/dL (8.5-10.1); Chloride 109 mmol/L (98-107); Creatinine, Serum 1.71 mg/dL (0.70-1.30); EST Glomerular Filtration Rate 42 mL/min (>60); Est Glom Filt Rate - Afr Amer 51 mL/min (>60); Globulin 4.1 g/dL (2.2-4.2); Glucose 114 mg/dL (74-106); Potassium 4.4 mmol/L (3.5-5.1); Protein, Total 7.6 g/dL (6.4-8.2); Sodium Level 143 mmol/L (136-145); Thyroid Stim Hormone (TSH) 4.15 uIU/mL (0.358-3.74)
== END ==
PROVIDERS: Family Provider Family Medicine; PCP Family Medicine; Referring Provider Internal Medicine Cardiovascular Disease; Visit Provider Internal Medicine Cardiovascular Disease
DX: E03.9 Hypothyroidism, unspecified (principal)
CPT/HCPCS: 80053; 84443; 85027

== ENCOUNTER → 2019-09-17 06:43 | Outpatient (CLI) | payer MEDICARE, OTHER, SELFPAY ==
[2019-07-30 15:43] VITALS: BMI 31.7
[2019-09-17 08:36] LABS: Anion Gap 5 (5-15); BUN 28 mg/dL (7-18); BUN/Creat Ratio 19.4 RATIO (10-20); Calcium,Total 8.9 mg/dL (8.5-10.1); Chloride 110 mmol/L (98-107); Cholesterol 127 mg/dL (200); Creatinine, Serum 1.44 mg/dL (0.70-1.30); EST Glomerular Filtration Rate 52 mL/min (>60); Est Glom Filt Rate - Afr Amer 63 mL/min (>60); Glucose 104 mg/dL (74-106); High Density Lipoprotein 61 mg/dL; Potassium 3.9 mmol/L (3.5-5.1); Sodium Level 142 mmol/L (136-145); T4 Free Direct 1.43 ng/dL (0.76-1.46); Thyroid Stim Hormone (TSH) 2.31 uIU/mL (0.358-3.74); Triglycerides 66 mg/dL; Very Low Density Lipoprotein 13 mg/dL (5-40)
== END ==
PROVIDERS: Family Provider Family Medicine; PCP Family Medicine; Referring Provider Family Medicine; Visit Provider Family Medicine
DX: E03.9 Hypothyroidism, unspecified (principal); E78.00 Pure hypercholesterolemia, unspecified; E78.5 Hyperlipidemia, unspecified
CPT/HCPCS: 36415; 80048; 80061; 84439; 84443

== ENCOUNTER → 2019-11-16 14:47 | Outpatient (CLI) | payer MEDICARE, OTHER, SELFPAY ==
[2019-07-30 15:43] VITALS: BMI 31.7
[2019-10-29 15:09] VITALS: BMI 31.7
== END ==
PROVIDERS: PCP Family Medicine; Referring Provider Internal Medicine Cardiovascular Disease; Visit Provider Internal Medicine Cardiovascular Disease
DX: I47.2 Ventricular tachycardia (principal); I42.8 Other cardiomyopathies; I44.7 Left bundle-branch block, unspecified; I27.21 Secondary pulmonary arterial hypertension; I11.0 Hypertensive heart disease with heart failure; I50.22 Chronic systolic (congestive) heart failure; Z95.5 Presence of coronary angioplasty implant and graft; Z95.810 Presence of automatic (implantable) cardiac defibrillator
CPT/HCPCS: 93308; Q9957; A4216; C8924

== ENCOUNTER → 2019-11-27 07:25 | Outpatient (CLI) | payer MEDICARE, OTHER, SELFPAY ==
[2019-10-29 15:09] VITALS: BMI 31.7
[2019-11-27 08:52] LABS: PSA,Total - Annual Screen 0.58 ng/mL (0.00-4.00)
[2019-11-27 08:53] LABS: AST(SGOT) 38 U/L (15-37); Alanine Aminotransfer ALT/SGPT 53 U/L (16-61); Albumin, Serum 3.5 g/dL (3.2-5.0); Alkaline Phosphatase 74 U/L (45-117); Bilirubin, Direct 0.13 mg/dL (0.00-0.30); Cholesterol 154 mg/dL (200); Globulin 4.5 g/dL (2.2-4.2); High Density Lipoprotein 68 mg/dL; Triglycerides 72 mg/dL; Very Low Density Lipoprotein 14 mg/dL (5-40)
== END ==
PROVIDERS: PCP Family Medicine; Referring Provider Physician Assistant Medical; Visit Provider Physician Assistant Medical
DX: E78.00 Pure hypercholesterolemia, unspecified (principal); E78.5 Hyperlipidemia, unspecified; Z12.5 Encounter for screening for malignant neoplasm of prostate
CPT/HCPCS: 36415; 80061; 80076; 84153; G0103

== ENCOUNTER → 2020-05-13 07:19 | Outpatient (CLI) | payer MEDICARE, OTHER, SELFPAY ==
[2019-10-29 15:09] VITALS: BMI 31.7
[2020-05-13 08:25] LABS: AST(SGOT) 56 U/L (15-37); Alanine Aminotransfer ALT/SGPT 53 U/L (16-61); Albumin, Serum 3.4 g/dL (3.2-5.0); Alkaline Phosphatase 75 U/L (45-117); Cholesterol 153 mg/dL (200); Globulin 4.7 g/dL (2.2-4.2); High Density Lipoprotein 65 mg/dL; Protein, Total 8.1 g/dL (6.4-8.2); Triglycerides 103 mg/dL; Very Low Density Lipoprotein 21 mg/dL (5-40)
[2020-05-13 08:28] LABS: ALB/GLOB Ratio 0.7 RATIO (0.9-2.4); AST(SGOT) 55 U/L (15-37); Alanine Aminotransfer ALT/SGPT 54 U/L (16-61); Albumin, Serum 3.4 g/dL (3.2-5.0); Alkaline Phosphatase 75 U/L (45-117); Anion Gap 4 (5-15); BUN 22 mg/dL (7-18); BUN/Creat Ratio 15.1 RATIO (10-20); Calcium,Total 8.7 mg/dL (8.5-10.1); Chloride 105 mmol/L (98-107); Creatinine, Serum 1.46 mg/dL (0.70-1.30); EST Glomerular Filtration Rate 51 mL/min (>60); Est Glom Filt Rate - Afr Amer 61 mL/min (>60); Globulin 4.7 g/dL (2.2-4.2); Glucose 131 mg/dL (74-106); Potassium 4.3 mmol/L (3.5-5.1); Protein, Total 8.1 g/dL (6.4-8.2); Sodium Level 140 mmol/L (136-145); Thyroid Stim Hormone (TSH) 3.62 uIU/mL (0.358-3.74)
== END ==
PROVIDERS: PCP Family Medicine; Referring Provider Internal Medicine Cardiovascular Disease; Visit Provider Internal Medicine Cardiovascular Disease
DX: E03.9 Hypothyroidism, unspecified (principal); Z12.5 Encounter for screening for malignant neoplasm of prostate; E78.00 Pure hypercholesterolemia, unspecified; E78.5 Hyperlipidemia, unspecified; I10 Essential (primary) hypertension
CPT/HCPCS: 36415; 80053; 80061; 80076; 84443